=== PATIENT | male | born 1940 | race Caucasian/White ===

== ENCOUNTER 2022-02-22 12:30 | Inpatient (IN) | payer MEDICARE ==
[2022-02-22] MEDS ORDERED: Aspirin Chewable 81 MG TAB ONE (13:02)
[2022-02-22] MEDS ORDERED: Furosemide 40 MG/4 ML VIAL ONE (13:03)
[2022-02-22] MEDS ORDERED: Nitroglycerin 0.4 MG TAB 1 EACH ONE (13:03)
[2022-02-22 13:11] LABS: INR-International Normal Ratio 1.2; PTT 28.8 sec (22.0-33.0); Prothrombin Time 12.4 sec (9.5-12.1)
[2022-02-22 13:14] LABS: ALT (SGPT) 21 U/L (8-55); AST (SGOT) 36 U/L (5-34); Albumin 4.2 g/dL (3.4-4.8); Alkaline Phosphatase 79 U/L (40-110); Anion Gap 17 mmol/L (10-20); BUN (Urea Nitrogen) 16 mg/dL (8.4-25.7); Bilirubin, Total 3.2 mg/dL (0.2-1.2); Calc. Creatinine Clearance 0 mL/min (70-130); Calcium 9.7 mg/dL (7.8-10.44); Carbon Dioxide 20 mmol/L (23-31); Chloride 110 mmol/L (98-107); Estimated GFR 68; Globulin 2.9 g/dL (2.4-3.5); Glucose 116 mg/dL (83-110); Potassium 3.9 mmol/L (3.5-5.1); Protein, Total 7.1 g/dL (5.8-8.1); Sodium 143 mmol/L (136-145)
[2022-02-22 13:20] LABS: #Basophils 0.1 10x3/uL (0.0-0.2); #Eosinphils 0.1 10x3/uL (0.0-0.5); #Monocytes 1.4 10x3/uL (0.0-1.1); #Neutrophils 10.4 10x3/uL (1.5-8.4); %Basophils 0.4 % (0.0-2.0); %Eosinophils 0.6 % (0.0-6.0); %Lymphocytes 15.8 % (18.0-47.0); %Neutrophils 72.7 % (40.0-75.0); Hemoglobin 16.3 g/dL (13.5-17.5); Mean Corpuscular HGB CONC 32.9 g/dL (32.0-36.0); Mean Corpuscular Hemoglobin 30.4 pg (27.0-33.0); Mean Corpuscular Volume 92.5 fl (81.2-95.1); Mean Platelet Volume 11.5 fl (7.4-10.4); Platelet Count 241 10x3/uL (150-450); RBC Distribution Width 16.9 % (11.5-14.5); Red Blood Cell (RBC) Count 5.36 10x6/uL (4.32-5.72); White Blood Cell (WBC) Count 14.4 10x3/uL (3.5-10.5)
[2022-02-22 13:36] LABS: CKMB 4.1 ng/mL (0-6.6)
[2022-02-22] MEDS ORDERED: Nitroglycerin 2% Ointment 1 INCH/1 GM Packet ONE (13:39)
[2022-02-22] MEDS ORDERED: Enalaprilat Dihydrate 1.25 MG/ML VIAL SLOW IVP SCH (13:45)
[2022-02-22 15:38] LABS: SARS-CoV-2 NAA Rapid Test DETECTED (NotDetected)
[2022-02-22] MEDS ORDERED: Ondansetron ODT 4 MG TAB PO PRN (15:38)
[2022-02-22] MEDS ORDERED: Ondansetron PF 4 MG/2 ML Vial IVP PRN (15:38)
[2022-02-22] MEDS ORDERED: Acetaminophen 650 MG Suppository PR PRN (15:38)
[2022-02-22] MEDS ORDERED: Acetaminophen 325 MG TAB PO PRN (15:38)
[2022-02-22] MEDS ORDERED: Senokot S 8.6-50 MG TAB PO PRN (15:38)
[2022-02-22] MEDS ORDERED: hydrALAZINE 20 MG/ML VIAL SLOW IVP PRN (15:44)
[2022-02-22 16:00] LABS: Magnesium 2.2 mg/dL (1.6-2.6)
[2022-02-22] MEDS ORDERED: FLU VACC QS2022-23(65YR UP)/PF 240 MCG/0.7 ML SYRINGE IM ONE (16:45)
[2022-02-23] MEDS ORDERED: Melatonin 3 MG TAB PO SCH ×2 (01:00→23:00)
[2022-02-23] MEDS: Furosemide 40 MG/4 ML VIAL SLOW IVP SCH ×2 (05:48→17:30)
[2022-02-23 05:59] LABS: #Basophils 0.1 10x3/uL (0.0-0.2); #Eosinphils 0.2 10x3/uL (0.0-0.5); #Monocytes 1.3 10x3/uL (0.0-1.1); #Neutrophils 9.5 10x3/uL (1.5-8.4); %Basophils 0.6 % (0.0-2.0); %Eosinophils 1.4 % (0.0-6.0); %Lymphocytes 12.4 % (18.0-47.0); %Monocytes 9.9 % (0.0-10.0); %Neutrophils 75.2 % (40.0-75.0); Hemoglobin 14.3 g/dL (13.5-17.5); Mean Corpuscular HGB CONC 32.8 g/dL (32.0-36.0); Mean Corpuscular Hemoglobin 30.1 pg (27.0-33.0); Mean Corpuscular Volume 91.8 fl (81.2-95.1); Mean Platelet Volume 10.5 fl (7.4-10.4); Platelet Count 193 10x3/uL (150-450); RBC Distribution Width 16.6 % (11.5-14.5); Red Blood Cell (RBC) Count 4.75 10x6/uL (4.32-5.72); White Blood Cell (WBC) Count 12.6 10x3/uL (3.5-10.5)
[2022-02-23 06:17] LABS: Anion Gap 13 mmol/L (10-20); BUN (Urea Nitrogen) 12 mg/dL (8.4-25.7); Calc. Creatinine Clearance 84 mL/min (70-130); Calcium 8.8 mg/dL (7.8-10.44); Carbon Dioxide 25 mmol/L (23-31); Chloride 108 mmol/L (98-107); Estimated GFR 79; Glucose 89 mg/dL (83-110); Magnesium 1.9 mg/dL (1.6-2.6); Potassium 3.3 mmol/L (3.5-5.1); Sodium 143 mmol/L (136-145)
[2022-02-23 06:20] LABS: ALT (SGPT) 17 U/L (8-55); AST (SGOT) 29 U/L (5-34); Albumin 3.5 g/dL (3.4-4.8); Alkaline Phosphatase 67 U/L (40-110); Bilirubin, Direct 0.7 mg/dL (0.1-0.3); Bilirubin, Total 3.4 mg/dL (0.2-1.2); Protein, Total 6.1 g/dL (5.8-8.1)
[2022-02-23 07:15] LABS: Bilirubin Neg (Negative); Blood, Urine 150 (Negative); Clarity Clear (Clear); Glucose, Urine (Dipstick) Normal (Negative); Ketone, Urine 5 mg/dL (Negative); Leukocyte 100 (Negative); Nitrite Negative (Negative); Protein, Urine (Dipstick) 100 mg/dl (Neg-Trace); Urobilinogen Normal mg/dL (Less than 2)
[2022-02-23 07:49] LABS: Urine Culture Reflex No No
[2022-02-23 08:10] LABS: RBC/HPF 21-50 HPF (0-3)
[2022-02-23 08:11] LABS: Bacteria/HPF Rare-Few HPF (None Seen); Squamous Epithelial 0-3 HPF (0-3)
[2022-02-23] MEDS ORDERED: Lisinopril 2.5 MG TAB PO SCH (09:00)
[2022-02-23] MEDS ORDERED: Potassium Chloride 20 MEQ TAB PO SCH (09:00)
[2022-02-23] MEDS: Apixaban 5 MG TAB PO SCH ×2 (10:07→22:38)
[2022-02-23] MEDS ORDERED: Carvedilol 12.5 MG TAB PO SCH (18:00)
[2022-02-24 03:40] VITALS: BMI 31.1
[2022-02-24 04:06] LABS: Anion Gap 13 mmol/L (10-20); BUN (Urea Nitrogen) 16 mg/dL (8.4-25.7); Calc. Creatinine Clearance 81 mL/min (70-130); Calcium 9.1 mg/dL (7.8-10.44); Carbon Dioxide 26 mmol/L (23-31); Chloride 105 mmol/L (98-107); Estimated GFR 76; Glucose 101 mg/dL (83-110); Potassium 3.5 mmol/L (3.5-5.1); Sodium 140 mmol/L (136-145)
[2022-02-24] MEDS ORDERED: Furosemide 20 MG TAB PO SCH (09:00)
[2022-02-24] MEDS: Apixaban 5 MG TAB PO SCH ×2 (10:43→21:46)
[2022-02-24] MEDS: Carvedilol 12.5 MG TAB PO SCH ×2 (10:43→16:05)
[2022-02-24] MEDS: Lisinopril 5 MG TAB PO SCH (10:43)
[2022-02-24] MEDS ORDERED: Potassium Chloride 20 MEQ TAB PO SCH (12:00)
[2022-02-24] MEDS ORDERED: Senokot S 8.6-50 MG TAB PO SCH (16:00)
[2022-02-24] MEDS ORDERED: Polyethylene Glycol 3350 17 GM Packet PO SCH (16:00)
[2022-02-25] MEDS ORDERED: Furosemide 40 MG TAB PO SCH (07:30)
[2022-02-25] MEDS: Carvedilol 12.5 MG TAB PO SCH (10:32)
[2022-02-25] MEDS: Apixaban 5 MG TAB PO SCH (10:32)
[2022-02-25] MEDS: Lisinopril 5 MG TAB PO SCH (10:33)
[2022-02-25 13:20] VITALS: BP 112/75; TEMP 98
== END 2022-02-25 13:20 | disposition home or self-care (01) | DRG 291 ==
LOC: CSHERS 12:30 → CSHTELE 15:51
PROVIDERS: ADMIT Internal Medicine; ATTEND Family Medicine
PROC: 8E0ZXY6 Isolation (ICD-10-PCS; principal; 2022-02-22)
DX: I11.0 Hypertensive heart disease with heart failure (principal); I50.43 Acute on chronic combined systolic (congestive) and diastolic (congestive) heart failure; U07.1 COVID-19; I48.92 Unspecified atrial flutter; R31.9 Hematuria, unspecified; I25.10 Atherosclerotic heart disease of native coronary artery without angina pectoris; I48.0 Paroxysmal atrial fibrillation; E78.5 Hyperlipidemia, unspecified; I49.5 Sick sinus syndrome; Z95.2 Presence of prosthetic heart valve; Z95.0 Presence of cardiac pacemaker; Z79.01 Long term (current) use of anticoagulants; Z85.46 Personal history of malignant neoplasm of prostate; Z79.899 Other long term (current) drug therapy; Z88.6 Allergy status to analgesic agent; Z92.3 Personal history of irradiation; Z95.5 Presence of coronary angioplasty implant and graft; I25.2 Old myocardial infarction; Z95.1 Presence of aortocoronary bypass graft; Z91.14 Patient's other noncompliance with medication regimen
CPT/HCPCS: 36415; 71045; 80048; 80053; 80076; 81001; 82553; 83735; 83880; 84443; 84484; 85025; 85610; 85730; 87086; 93005; 93306; 94760; 96374; 97139; J1940; U0002

== ENCOUNTER 2022-03-23 06:36 | Inpatient (IN) | payer MEDICARE ==
[2022-03-23 07:14] LABS: Actual Bicarbonate (HCO3a) 23.5 mEq/L (22-28); Base Excess (BEa) 0.5 mEq/L (-2.0 to +3.0); CO2 Tension 33.2 mmHg (35.0-45.0); Carboxyhemoglobin (COHb) 0.8 gm% (0.0-3.0); Hemoglobin (Hb) 15.2 g/dL (14.0-18.0); O2 Tension (PaO2), arterial 190.2 mmHg (> 60.0); Puncture Site LRA; pH, Arterial 7.47 (7.35-7.45)
[2022-03-23] MEDS ORDERED: Apixaban 5 MG TAB PO SCH (09:00)
[2022-03-23 09:10] LABS: CKMB 1.9 ng/mL (0-6.6)
[2022-03-23] MEDS ORDERED: Apixaban 5 MG TAB ONE (09:23)
[2022-03-23] MEDS ORDERED: Acetaminophen 325 MG TAB ONE (10:54)
[2022-03-23 11:21] LABS: Troponin I 0.035 ng/mL (< 0.028)
[2022-03-23 13:47] VITALS: BMI 31.8
[2022-03-23] MEDS: cefTRIAXone\\ROCEPHIN 1 GM in Sodium Chloride 0.9% 100 ML IVPB SCH (14:02)
[2022-03-23] MEDS: Azithromycin 500 MG in Sodium Chloride 0.9% 250 ML 250 ML IVPB SCH (14:03)
[2022-03-23 14:23] LABS: Potassium 4.4 mmol/L (3.5-5.1)
[2022-03-23 14:30] LABS: Troponin I 0.025 ng/mL (< 0.028)
[2022-03-23] MEDS ORDERED: Carvedilol 12.5 MG TAB PO SCH (18:15)
[2022-03-23] MEDS: Benzonatate 100 MG CAP PO PRN (18:16)
[2022-03-23] MEDS: Acetaminophen 325 MG TAB PO PRN (18:27)
[2022-03-23] MEDS: Guaifenesin DM 100-10/5 ML UDCUP PO PRN (21:02)
[2022-03-24 05:00] LABS: #Monocytes 1.6 10x3/uL (0.0-1.1); #Neutrophils 13.7 10x3/uL (1.5-8.4); %Basophils 0.1 % (0.0-2.0); %Eosinophils 0.1 % (0.0-6.0); %Lymphocytes 6.6 % (18.0-47.0); %Monocytes 9.5 % (0.0-10.0); %Neutrophils 83.3 % (40.0-75.0); Hemoglobin 13.9 g/dL (13.5-17.5); Mean Corpuscular HGB CONC 33.3 g/dL (32.0-36.0); Mean Corpuscular Hemoglobin 30.2 pg (27.0-33.0); Mean Corpuscular Volume 90.5 fl (81.2-95.1); Mean Platelet Volume 11.8 fl (7.4-10.4); Platelet Count 130 10x3/uL (150-450); RBC Distribution Width 15.8 % (11.5-14.5); Red Blood Cell (RBC) Count 4.61 10x6/uL (4.32-5.72); White Blood Cell (WBC) Count 16.5 10x3/uL (3.5-10.5)
[2022-03-24 05:30] LABS: Anion Gap 13 mmol/L (10-20); BUN (Urea Nitrogen) 28 mg/dL (8.4-25.7); Calc. Creatinine Clearance 83 mL/min (70-130); Calcium 9.2 mg/dL (7.8-10.44); Carbon Dioxide 24 mmol/L (23-31); Chloride 106 mmol/L (98-107); Estimated GFR 76; Glucose 107 mg/dL (83-110); Potassium 4.5 mmol/L (3.5-5.1); Sodium 138 mmol/L (136-145)
[2022-03-24] MEDS: Furosemide 40 MG/4 ML VIAL SLOW IVP SCH ×2 (06:38→15:48)
[2022-03-24] MEDS ORDERED: Carvedilol 12.5 MG TAB PO SCH (08:00)
[2022-03-24] MEDS: Potassium Chloride 20 MEQ TAB PO SCH ×2 (08:57→18:52)
[2022-03-24] MEDS: Benzonatate 100 MG CAP PO PRN (08:57)
[2022-03-24] MEDS ORDERED: Polyethylene Glycol 3350 17 GM Packet PO PRN (09:07)
[2022-03-24] MEDS ORDERED: Iopamidol 370 76% 100 ML VIAL ONE (09:16)
[2022-03-24] MEDS ORDERED: Apixaban 5 MG TAB PO SCH (10:00)
[2022-03-24] MEDS ORDERED: methylPREDNISolone Sod Succ 40 MG VIAL IVP SCH (14:45)
[2022-03-24] MEDS: Azithromycin 500 MG in Sodium Chloride 0.9% 250 ML 250 ML IVPB SCH (15:48)
[2022-03-24] MEDS: cefTRIAXone\\ROCEPHIN 1 GM in Sodium Chloride 0.9% 100 ML IVPB SCH (15:48)
[2022-03-24] MEDS: Carvedilol 12.5 MG TAB PO SCH (18:52)
[2022-03-24] MEDS: Apixaban 5 MG TAB PO SCH (18:53)
[2022-03-24 19:25] LABS: Bilirubin Neg (Negative); Blood, Urine 250 (Negative); Clarity Cloudy (Clear); Glucose, Urine (Dipstick) Normal (Negative); Ketone, Urine Negative (Negative); Leukocyte 100 (Negative); Nitrite Negative (Negative); Protein, Urine (Dipstick) 30 mg/dl (Neg-Trace); Urobilinogen Normal mg/dL (Less than 2)
[2022-03-24 19:33] LABS: Bacteria/HPF 1+ HPF (None Seen); RBC/HPF Greater than 50 HPF (0-3); Squamous Epithelial 0-3 HPF (0-3)
[2022-03-24] MEDS: Guaifenesin DM 100-10/5 ML UDCUP PO PRN (20:53)
[2022-03-25] MEDS: Guaifenesin DM 100-10/5 ML UDCUP PO PRN ×2 (04:25→20:46)
[2022-03-25] MEDS: Acetaminophen 325 MG TAB PO PRN ×2 (04:25→13:58)
[2022-03-25] MEDS: Furosemide 40 MG/4 ML VIAL SLOW IVP SCH ×2 (05:30→13:45)
[2022-03-25 06:44] LABS: #Monocytes 0.6 10x3/uL (0.0-1.1); %Basophils 0.1 % (0.0-2.0); %Monocytes 6.1 % (0.0-10.0); %Neutrophils 85.3 % (40.0-75.0); Hemoglobin 14.1 g/dL (13.5-17.5); Mean Corpuscular HGB CONC 32.6 g/dL (32.0-36.0); Mean Corpuscular Hemoglobin 29.4 pg (27.0-33.0); Mean Corpuscular Volume 90.2 fl (81.2-95.1); Mean Platelet Volume 11.7 fl (7.4-10.4); Platelet Count 150 10x3/uL (150-450); RBC Distribution Width 15.5 % (11.5-14.5); White Blood Cell (WBC) Count 10.6 10x3/uL (3.5-10.5)
[2022-03-25 06:51] LABS: Anion Gap 13 mmol/L (10-20); BUN (Urea Nitrogen) 33 mg/dL (8.4-25.7); Calc. Creatinine Clearance 90 mL/min (70-130); Calcium 9.2 mg/dL (7.8-10.44); Carbon Dioxide 26 mmol/L (23-31); Chloride 105 mmol/L (98-107); Estimated GFR 84; Glucose 110 mg/dL (83-110); Potassium 4.9 mmol/L (3.5-5.1); Sodium 139 mmol/L (136-145)
[2022-03-25] MEDS ORDERED: methylPREDNISolone Sod Succ 40 MG VIAL IVP SCH (09:00)
[2022-03-25] MEDS: Polyethylene Glycol 3350 17 GM Packet PO SCH (09:27)
[2022-03-25] MEDS: Apixaban 5 MG TAB PO SCH ×2 (09:28→20:45)
[2022-03-25] MEDS: Carvedilol 12.5 MG TAB PO SCH ×2 (09:29→16:14)
[2022-03-25] MEDS: Potassium Chloride 20 MEQ TAB PO SCH ×2 (09:29→16:15)
[2022-03-25] MEDS: methylPREDNISolone Sod Succ 40 MG VIAL IVP SCH ×2 (09:30→20:44)
[2022-03-25] MEDS ORDERED: guaiFENesin ER 600 MG TAB PO SCH (10:30)
[2022-03-25] MEDS: cefTRIAXone\\ROCEPHIN 1 GM in Sodium Chloride 0.9% 100 ML IVPB SCH (13:45)
[2022-03-25] MEDS: Bisacodyl 10 MG SUPP PR PRN ×2 (16:55→20:45)
[2022-03-25] MEDS ORDERED: Azithromycin 250 MG TAB PO SCH (17:00)
[2022-03-25] MEDS: guaiFENesin ER 600 MG TAB PO SCH (20:45)
[2022-03-26 04:36] LABS: Hemoglobin 14.2 g/dL (13.5-17.5); Mean Corpuscular Hemoglobin 30.4 pg (27.0-33.0); Mean Corpuscular Volume 89.5 fl (81.2-95.1); Platelet Count 177 10x3/uL (150-450); RBC Distribution Width 15.2 % (11.5-14.5); Red Blood Cell (RBC) Count 4.67 10x6/uL (4.32-5.72); White Blood Cell (WBC) Count 13.3 10x3/uL (3.5-10.5)
[2022-03-26 05:15] LABS: Anion Gap 14 mmol/L (10-20); BUN (Urea Nitrogen) 33 mg/dL (8.4-25.7); Calc. Creatinine Clearance 98 mL/min (70-130); Calcium 9.4 mg/dL (7.8-10.44); Carbon Dioxide 24 mmol/L (23-31); Chloride 103 mmol/L (98-107); Estimated GFR 88; Glucose 130 mg/dL (83-110); Potassium 4.4 mmol/L (3.5-5.1); Sodium 137 mmol/L (136-145)
[2022-03-26 06:01] LABS: MDiff Complete? YES
[2022-03-26] MEDS: Furosemide 40 MG/4 ML VIAL SLOW IVP SCH (06:33)
[2022-03-26 06:41] LABS: Lymphocytes 2 % (21-51); Monocytes 3 % (0-10); Neutrophil 95 % (42-75)
[2022-03-26 06:42] LABS: Diff Comment (RBC Morph SCRN) NORMAL; Platelet Morphology Comment Appears Adequate
[2022-03-26] MEDS: guaiFENesin ER 600 MG TAB PO SCH (08:35)
[2022-03-26] MEDS: Carvedilol 12.5 MG TAB PO SCH (08:35)
[2022-03-26] MEDS: Potassium Chloride 20 MEQ TAB PO SCH (08:35)
[2022-03-26] MEDS: methylPREDNISolone Sod Succ 40 MG VIAL IVP SCH (08:36)
[2022-03-26] MEDS: Polyethylene Glycol 3350 17 GM Packet PO SCH (08:36)
[2022-03-26] MEDS: Apixaban 5 MG TAB PO SCH (08:36)
[2022-03-26 12:20] VITALS: BP 148/91; TEMP 98
== END 2022-03-26 13:50 | disposition home or self-care (01) | DRG 871 ==
LOC: CSHERS 06:36 → CSHTELE 13:41
PROVIDERS: ADMIT Family Medicine; ATTEND Internal Medicine
DX: A41.9 Sepsis, unspecified organism (principal); I50.43 Acute on chronic combined systolic (congestive) and diastolic (congestive) heart failure; J18.9 Pneumonia, unspecified organism; J96.01 Acute respiratory failure with hypoxia; I49.5 Sick sinus syndrome; I11.0 Hypertensive heart disease with heart failure; E78.5 Hyperlipidemia, unspecified; I48.0 Paroxysmal atrial fibrillation; I25.10 Atherosclerotic heart disease of native coronary artery without angina pectoris; I27.20 Pulmonary hypertension, unspecified; Z85.46 Personal history of malignant neoplasm of prostate; Z92.3 Personal history of irradiation; Z95.3 Presence of xenogenic heart valve; Z95.5 Presence of coronary angioplasty implant and graft; I25.2 Old myocardial infarction; Z95.0 Presence of cardiac pacemaker; Z88.6 Allergy status to analgesic agent; Z79.899 Other long term (current) drug therapy; Z90.49 Acquired absence of other specified parts of digestive tract; Z95.1 Presence of aortocoronary bypass graft
CPT/HCPCS: 36415; 36600; 71275; 80048; 81001; 82553; 82805; 83735; 83880; 85025; 87070; 87205; 93005; 94640; 94660; 94760; J0456; J0696; J1940; J2920; J3490; J7050; J7620; Q9967

== ENCOUNTER 2022-06-15 14:40 | Outpatient (CLI) | payer MEDICARE | END 2022-06-15 14:43 | disposition home or self-care (01) | LOC: CSHWCC 14:40 | PROVIDERS: ATTEND Nurse Practitioner Family | DX: N30.41 Irradiation cystitis with hematuria (principal) | CPT/HCPCS: 97139; G0463; 99203 ==

== ENCOUNTER 2022-07-20 13:05 | Outpatient (CLI) | payer MEDICARE | END 2022-07-20 13:06 | disposition home or self-care (01) | LOC: CSHWCC 13:05 | PROVIDERS: ATTEND Nurse Practitioner Family | DX: N30.41 Irradiation cystitis with hematuria (principal) | CPT/HCPCS: 97139; G0277 ==

== ENCOUNTER 2022-07-21 13:06 | Outpatient (CLI) | payer MEDICARE | END 2022-07-21 13:07 | disposition home or self-care (01) | LOC: CSHWCC 13:06 | PROVIDERS: ATTEND Nurse Practitioner Family | DX: N30.41 Irradiation cystitis with hematuria (principal) | CPT/HCPCS: 97139; G0277 ==

== ENCOUNTER 2022-07-22 13:01 | Outpatient (CLI) | payer MEDICARE | END 2022-07-22 13:02 | disposition home or self-care (01) | LOC: CSHWCC 13:01 | PROVIDERS: ATTEND Nurse Practitioner Family | DX: N30.41 Irradiation cystitis with hematuria (principal) ==

== ENCOUNTER 2022-07-23 10:02 | Inpatient (IN) | payer MEDICARE ==
[2022-07-23] MEDS ORDERED: Furosemide 100 MG/10 ML VIAL ONE (10:49)
[2022-07-23 11:11] LABS: #Basophils 0.1 10x3/uL (0.0-0.2); #Eosinphils 0.5 10x3/uL (0.0-0.5); #Monocytes 1.1 10x3/uL (0.0-1.1); #Neutrophils 9.8 10x3/uL (1.5-8.4); %Basophils 0.5 % (0.0-2.0); %Eosinophils 3.8 % (0.0-6.0); %Lymphocytes 8.1 % (18.0-47.0); %Monocytes 9.1 % (0.0-10.0); %Neutrophils 77.9 % (40.0-75.0); Hemoglobin 14.5 g/dL (13.5-17.5); Mean Corpuscular HGB CONC 32.7 g/dL (32.0-36.0); Mean Corpuscular Hemoglobin 30.5 pg (27.0-33.0); Mean Corpuscular Volume 93.5 fl (81.2-95.1); Mean Platelet Volume 11.1 fl (7.4-10.4); Platelet Count 227 10x3/uL (150-450); RBC Distribution Width 15.3 % (11.5-14.5); Red Blood Cell (RBC) Count 4.75 10x6/uL (4.32-5.72); White Blood Cell (WBC) Count 12.5 10x3/uL (3.5-10.5)
[2022-07-23 11:24] LABS: INR-International Normal Ratio 1.3; PTT 31.6 sec (22.0-33.0); Prothrombin Time 13.5 sec (9.5-12.1)
[2022-07-23 11:40] LABS: ALT (SGPT) 32 U/L (8-55); AST (SGOT) 37 U/L (5-34); Albumin 3.5 g/dL (3.4-4.8); Alkaline Phosphatase 87 U/L (40-110); Anion Gap 17 mmol/L (10-20); BUN (Urea Nitrogen) 43 mg/dL (8.4-25.7); Bilirubin, Total 2.4 mg/dL (0.2-1.2); Calc. Creatinine Clearance 0 mL/min (70-130); Calcium 8.7 mg/dL (7.8-10.44); Carbon Dioxide 21 mmol/L (23-31); Chloride 99 mmol/L (98-107); Estimated GFR 33; Globulin 2.5 g/dL (2.4-3.5); Glucose 121 mg/dL (83-110); Lipase 53 U/L (8-78); Magnesium 2.3 mg/dL (1.6-2.6); Potassium 4.9 mmol/L (3.5-5.1); Sodium 132 mmol/L (136-145)
[2022-07-23] MEDS ORDERED: Acetaminophen 325 MG TAB ONE (13:23)
[2022-07-23] MEDS ORDERED: Ondansetron ODT 4 MG TAB PO PRN (13:56)
[2022-07-23] MEDS: Furosemide 40 MG/4 ML VIAL SLOW IVP SCH (16:06)
[2022-07-23] MEDS ORDERED: Iopamidol 300 61% 100 ML VIAL FS ONE (18:24)
[2022-07-23 19:30] LABS: SARS-CoV-2 NAA Rapid Test DETECTED (NotDetected)
[2022-07-24] MEDS: Acetaminophen 325 MG TAB PO PRN ×3 (00:51→17:43)
[2022-07-24] MEDS: Apixaban 5 MG TAB PO SCH ×2 (01:18→13:00)
[2022-07-24 05:50] LABS: #Basophils 0.1 10x3/uL (0.0-0.2); #Eosinphils 0.6 10x3/uL (0.0-0.5); #Monocytes 1.6 10x3/uL (0.0-1.1); %Basophils 0.4 % (0.0-2.0); %Eosinophils 4.8 % (0.0-6.0); %Lymphocytes 9.7 % (18.0-47.0); %Monocytes 12.6 % (0.0-10.0); %Neutrophils 72.1 % (40.0-75.0); Hemoglobin 13.8 g/dL (13.5-17.5); Mean Corpuscular HGB CONC 32.9 g/dL (32.0-36.0); Mean Corpuscular Hemoglobin 29.9 pg (27.0-33.0); Mean Corpuscular Volume 90.9 fl (81.2-95.1); Mean Platelet Volume 10.8 fl (7.4-10.4); Platelet Count 215 10x3/uL (150-450); RBC Distribution Width 15.4 % (11.5-14.5); Red Blood Cell (RBC) Count 4.62 10x6/uL (4.32-5.72); White Blood Cell (WBC) Count 12.4 10x3/uL (3.5-10.5)
[2022-07-24 06:03] LABS: Anion Gap 15 mmol/L (10-20); BUN (Urea Nitrogen) 41 mg/dL (8.4-25.7); Calc. Creatinine Clearance 47 mL/min (70-130); Calcium 8.9 mg/dL (7.8-10.44); Carbon Dioxide 22 mmol/L (23-31); Chloride 103 mmol/L (98-107); Estimated GFR 38; Glucose 116 mg/dL (83-110); Potassium 4.2 mmol/L (3.5-5.1); Sodium 136 mmol/L (136-145)
[2022-07-24] MEDS: Furosemide 40 MG/4 ML VIAL SLOW IVP SCH ×2 (06:07→13:05)
[2022-07-24] MEDS: Polyethylene Glycol 3350 17 GM Packet PO SCH (09:20)
[2022-07-24] MEDS ORDERED: Metolazone 2.5 MG TAB PO SCH (11:30)
[2022-07-24 15:04] LABS: Bilirubin Neg (Negative); Blood, Urine 250 (Negative); Clarity Cloudy (Clear); Glucose, Urine (Dipstick) Normal (Negative); Ketone, Urine Negative (Negative); Leukocyte 500 (Negative); Nitrite Negative (Negative); Protein, Urine (Dipstick) 30 mg/dl (Neg-Trace); Specific Gravity, Urine 1.015 (1.005-1.030); Urobilinogen Normal mg/dL (Less than 2)
[2022-07-24 15:23] LABS: Creatinine, Urine 76.82 mg/dL (63-166); Protein, Urine Random Quant 44 mg/dL (1-14)
[2022-07-24 15:37] LABS: Bacteria/HPF 1+ HPF (None Seen); RBC/HPF Greater than 50 HPF (0-3); Squamous Epithelial 0-3 HPF (0-3)
[2022-07-24] MEDS: Carvedilol 6.25 MG TAB PO SCH (17:42)
[2022-07-24 20:28] LABS: Sodium, Urine Less than 20 mmol/L (Not Available); Urea Nitrogen, Random Urine 593 mg/dl
[2022-07-24] MEDS: Sacubitril 24MG/Valsartan 26 MG TAB PO SCH (21:08)
[2022-07-25] MEDS: Acetaminophen 325 MG TAB PO PRN ×3 (01:08→18:07)
[2022-07-25] MEDS: Apixaban 5 MG TAB PO SCH ×2 (01:08→10:55)
[2022-07-25 04:40] LABS: #Basophils 0.1 10x3/uL (0.0-0.2); #Eosinphils 0.6 10x3/uL (0.0-0.5); #Monocytes 1.5 10x3/uL (0.0-1.1); %Basophils 0.4 % (0.0-2.0); %Eosinophils 4.8 % (0.0-6.0); %Lymphocytes 8.1 % (18.0-47.0); %Monocytes 12.2 % (0.0-10.0); %Neutrophils 74.2 % (40.0-75.0); Hemoglobin 13.3 g/dL (13.5-17.5); Mean Corpuscular HGB CONC 32.8 g/dL (32.0-36.0); Mean Corpuscular Volume 91.4 fl (81.2-95.1); Platelet Count 207 10x3/uL (150-450); RBC Distribution Width 15.4 % (11.5-14.5); Red Blood Cell (RBC) Count 4.44 10x6/uL (4.32-5.72); White Blood Cell (WBC) Count 12.2 10x3/uL (3.5-10.5)
[2022-07-25 04:46] LABS: Anion Gap 13 mmol/L (10-20); BUN (Urea Nitrogen) 39 mg/dL (8.4-25.7); Calc. Creatinine Clearance 54 mL/min (70-130); Calcium 8.7 mg/dL (7.8-10.44); Carbon Dioxide 24 mmol/L (23-31); Chloride 103 mmol/L (98-107); Estimated GFR 44; Glucose 122 mg/dL (83-110); Potassium 3.8 mmol/L (3.5-5.1); Sodium 136 mmol/L (136-145)
[2022-07-25 07:02] LABS: Iron 49 ug/dL (65-175); Iron Binding Capacity, Total 299 mcg/dL (261-462)
[2022-07-25] MEDS: Furosemide 40 MG/4 ML VIAL SLOW IVP SCH ×2 (07:49→14:57)
[2022-07-25] MEDS: Metolazone 2.5 MG TAB PO SCH (10:25)
[2022-07-25] MEDS: Polyethylene Glycol 3350 17 GM Packet PO SCH (10:25)
[2022-07-25] MEDS: Sacubitril 24MG/Valsartan 26 MG TAB PO SCH ×2 (10:25→20:06)
[2022-07-25] MEDS: Spironolactone 25 MG TAB PO SCH (10:26)
[2022-07-25] MEDS ORDERED: Iron, Sodium Ferric Gluconate 250 MG in Sodium Chloride 0.9% 250 ML 250 ML IVPB SCH (10:45)
[2022-07-25] MEDS: Bisacodyl 5 MG TAB PO PRN (10:55)
[2022-07-25] MEDS: Carvedilol 6.25 MG TAB PO SCH ×2 (10:55→18:08)
[2022-07-25] MEDS ORDERED: Fluticasone Propionate Nasal Spray 16 gm Bottle NASAL SCH (11:00)
[2022-07-25] MEDS ORDERED: Magnesium Oxide 400 MG TAB PO SCH (22:30)
[2022-07-25] MEDS: Melatonin 3 MG TAB PO PRN (22:50)
[2022-07-26] MEDS: Acetaminophen 325 MG TAB PO PRN ×3 (00:37→21:39)
[2022-07-26] MEDS: Apixaban 5 MG TAB PO SCH (01:23)
[2022-07-26 06:05] LABS: #Basophils 0.1 10x3/uL (0.0-0.2); #Eosinphils 0.7 10x3/uL (0.0-0.5); #Monocytes 1.7 10x3/uL (0.0-1.1); #Neutrophils 8.6 10x3/uL (1.5-8.4); %Basophils 0.7 % (0.0-2.0); %Eosinophils 5.5 % (0.0-6.0); %Lymphocytes 8.3 % (18.0-47.0); %Monocytes 14.1 % (0.0-10.0); %Neutrophils 70.8 % (40.0-75.0); Hemoglobin 12.7 g/dL (13.5-17.5); Mean Corpuscular HGB CONC 33.1 g/dL (32.0-36.0); Mean Corpuscular Hemoglobin 30.2 pg (27.0-33.0); Mean Corpuscular Volume 91.2 fl (81.2-95.1); Platelet Count 192 10x3/uL (150-450); RBC Distribution Width 15.1 % (11.5-14.5); Red Blood Cell (RBC) Count 4.21 10x6/uL (4.32-5.72); White Blood Cell (WBC) Count 12.1 10x3/uL (3.5-10.5)
[2022-07-26] MEDS: Furosemide 40 MG/4 ML VIAL SLOW IVP SCH ×2 (07:15→15:15)
[2022-07-26 07:58] LABS: Anion Gap 16 mmol/L (10-20); BUN (Urea Nitrogen) 54 mg/dL (8.4-25.7); Calc. Creatinine Clearance 68 mL/min (70-130); Calcium 8.7 mg/dL (7.8-10.44); Carbon Dioxide 24 mmol/L (23-31); Chloride 102 mmol/L (98-107); Estimated GFR 60; Glucose 108 mg/dL (83-110); Magnesium 2.3 mg/dL (1.6-2.6); Potassium 3.7 mmol/L (3.5-5.1); Sodium 138 mmol/L (136-145)
[2022-07-26] MEDS: Sacubitril 24MG/Valsartan 26 MG TAB PO SCH ×2 (08:41→21:40)
[2022-07-26] MEDS: Spironolactone 25 MG TAB PO SCH (08:41)
[2022-07-26] MEDS: Polyethylene Glycol 3350 17 GM Packet PO SCH (08:41)
[2022-07-26] MEDS: Metolazone 2.5 MG TAB PO SCH (08:41)
[2022-07-26] MEDS: Bisacodyl 5 MG TAB PO PRN (08:41)
[2022-07-26] MEDS: Fluticasone Propionate Nasal Spray 16 gm Bottle NASAL SCH (08:42)
[2022-07-26] MEDS: Carvedilol 6.25 MG TAB PO SCH ×2 (08:42→15:15)
[2022-07-26] MEDS ORDERED: GoLYTELY 4,000 ml Bottle PO SCH (09:30)
[2022-07-26] MEDS ORDERED: Apixaban 5 MG TAB PO SCH ×2 (11:00→21:00)
[2022-07-26] MEDS ORDERED: Spironolactone 25 MG TAB PO SCH (14:00)
[2022-07-26] MEDS: Albumin 25% 25 GM/100 ML BOT IVPB SCH ×2 (15:14→21:41)
[2022-07-26] MEDS: Senokot S 8.6-50 MG TAB PO SCH (21:40)
[2022-07-26] MEDS: Melatonin 3 MG TAB PO PRN (21:40)
[2022-07-26] MEDS: rOPINIRole HCl 0.25 MG TAB PO SCH (21:40)
[2022-07-26] MEDS ORDERED: Furosemide 40 MG/4 ML VIAL SLOW IVP SCH (22:00)
[2022-07-27] MEDS: Acetaminophen 325 MG TAB PO PRN ×2 (01:40→18:35)
[2022-07-27 05:23] LABS: #Basophils 0.1 10x3/uL (0.0-0.2); #Eosinphils 0.8 10x3/uL (0.0-0.5); #Monocytes 1.5 10x3/uL (0.0-1.1); #Neutrophils 9.9 10x3/uL (1.5-8.4); %Basophils 0.4 % (0.0-2.0); %Eosinophils 5.9 % (0.0-6.0); %Lymphocytes 9.6 % (18.0-47.0); %Monocytes 11.2 % (0.0-10.0); %Neutrophils 72.3 % (40.0-75.0); Hemoglobin 10.5 g/dL (13.5-17.5); Mean Corpuscular HGB CONC 32.9 g/dL (32.0-36.0); Mean Corpuscular Hemoglobin 29.9 pg (27.0-33.0); Mean Corpuscular Volume 90.9 fl (81.2-95.1); Mean Platelet Volume 10.9 fl (7.4-10.4); Platelet Count 197 10x3/uL (150-450); RBC Distribution Width 15.1 % (11.5-14.5); Red Blood Cell (RBC) Count 3.51 10x6/uL (4.32-5.72); White Blood Cell (WBC) Count 13.7 10x3/uL (3.5-10.5)
[2022-07-27 05:28] LABS: ALT (SGPT) 19 U/L (8-55); AST (SGOT) 21 U/L (5-34); Albumin 2.9 g/dL (3.4-4.8); Alkaline Phosphatase 61 U/L (40-110); Anion Gap 11 mmol/L (10-20); BUN (Urea Nitrogen) 62 mg/dL (8.4-25.7); Bilirubin, Total 1.5 mg/dL (0.2-1.2); Calc. Creatinine Clearance 69 mL/min (70-130); Calcium 9.2 mg/dL (7.8-10.44); Carbon Dioxide 31 mmol/L (23-31); Chloride 102 mmol/L (98-107); Estimated GFR 61; Glucose 116 mg/dL (83-110); Protein, Total 4.9 g/dL (5.8-8.1); Sodium 140 mmol/L (136-145)
[2022-07-27] MEDS: Furosemide 40 MG/4 ML VIAL SLOW IVP SCH ×4 (06:24→21:14)
[2022-07-27] MEDS: Sacubitril 24MG/Valsartan 26 MG TAB PO SCH ×2 (08:28→21:13)
[2022-07-27] MEDS: Senokot S 8.6-50 MG TAB PO SCH ×2 (08:28→20:43)
[2022-07-27] MEDS: Spironolactone 25 MG TAB PO SCH (08:28)
[2022-07-27] MEDS: Metolazone 2.5 MG TAB PO SCH (08:30)
[2022-07-27] MEDS: Carvedilol 6.25 MG TAB PO SCH ×2 (08:30→18:35)
[2022-07-27] MEDS: Fluticasone Propionate Nasal Spray 16 gm Bottle NASAL SCH (08:31)
[2022-07-27] MEDS: Polyethylene Glycol 3350 17 GM Packet PO SCH (08:31)
[2022-07-27] MEDS: Albumin 25% 25 GM/100 ML BOT IVPB SCH ×2 (12:50→20:37)
[2022-07-27 13:36] LABS: Hemoglobin 10.6 g/dL (13.5-17.5); Platelet Count 206 10x3/uL (150-450)
[2022-07-27] MEDS: Melatonin 3 MG TAB PO PRN (18:26)
[2022-07-27] MEDS: rOPINIRole HCl 0.25 MG TAB PO SCH (20:42)
[2022-07-27] MEDS ORDERED: Apixaban 5 MG TAB PO SCH (21:00)
[2022-07-28] MEDS: Acetaminophen 325 MG TAB PO PRN ×5 (00:24→21:41)
[2022-07-28] MEDS: Albumin 25% 25 GM/100 ML BOT IVPB SCH ×4 (04:48→21:42)
[2022-07-28] MEDS: Furosemide 40 MG/4 ML VIAL SLOW IVP SCH ×3 (05:41→21:42)
[2022-07-28 07:16] LABS: Albumin 3.4 g/dL (3.4-4.8); Anion Gap 15 mmol/L (10-20); BUN (Urea Nitrogen) 56 mg/dL (8.4-25.7); BUN/Creatinine Ratio 47.06; Calc. Creatinine Clearance 69 mL/min (70-130); Calcium 9.4 mg/dL (7.8-10.44); Carbon Dioxide 28 mmol/L (23-31); Chloride 101 mmol/L (98-107); Estimated GFR 61; Glucose 111 mg/dL (83-110); Phosphorus 3.6 mg/dL (2.3-4.7); Potassium 3.7 mmol/L (3.5-5.1); Sodium 140 mmol/L (136-145)
[2022-07-28 07:42] LABS: #Basophils 0.1 10x3/uL (0.0-0.2); #Eosinphils 0.8 10x3/uL (0.0-0.5); #Monocytes 1.3 10x3/uL (0.0-1.1); #Neutrophils 7.5 10x3/uL (1.5-8.4); %Basophils 0.6 % (0.0-2.0); %Eosinophils 7.2 % (0.0-6.0); %Lymphocytes 9.4 % (18.0-47.0); %Monocytes 12.4 % (0.0-10.0); %Neutrophils 69.8 % (40.0-75.0); Hemoglobin 8.4 g/dL (13.5-17.5); Mean Corpuscular HGB CONC 32.6 g/dL (32.0-36.0); Mean Corpuscular Hemoglobin 30.1 pg (27.0-33.0); Mean Corpuscular Volume 92.5 fl (81.2-95.1); Mean Platelet Volume 11.5 fl (7.4-10.4); Platelet Count 164 10x3/uL (150-450); RBC Distribution Width 15.2 % (11.5-14.5); Red Blood Cell (RBC) Count 2.79 10x6/uL (4.32-5.72); White Blood Cell (WBC) Count 10.8 10x3/uL (3.5-10.5)
[2022-07-28] MEDS: Carvedilol 6.25 MG TAB PO SCH ×2 (10:26→16:03)
[2022-07-28] MEDS: Sacubitril 24MG/Valsartan 26 MG TAB PO SCH ×3 (10:26→21:42)
[2022-07-28] MEDS: Fluticasone Propionate Nasal Spray 16 gm Bottle NASAL SCH (10:30)
[2022-07-28] MEDS: Metolazone 2.5 MG TAB PO SCH (10:30)
[2022-07-28] MEDS: Senokot S 8.6-50 MG TAB PO SCH ×3 (10:30→21:42)
[2022-07-28] MEDS: Spironolactone 25 MG TAB PO SCH (10:30)
[2022-07-28] MEDS: Midodrine HCl 2.5 MG TAB PO SCH ×3 (10:34→21:42)
[2022-07-28] MEDS: Polyethylene Glycol 3350 17 GM Packet PO SCH (10:35)
[2022-07-28] MEDS ORDERED: Pantoprazole 40 MG VIAL IVP SCH (17:00)
[2022-07-28] MEDS: rOPINIRole HCl 0.25 MG TAB PO SCH (21:42)
[2022-07-28] MEDS: Melatonin 3 MG TAB PO PRN (21:42)
[2022-07-29] MEDS: Albumin 25% 25 GM/100 ML BOT IVPB SCH (04:39)
[2022-07-29] MEDS: Furosemide 40 MG/4 ML VIAL SLOW IVP SCH ×2 (06:53→15:10)
[2022-07-29 09:07] LABS: #Basophils 0.1 10x3/uL (0.0-0.2); #Eosinphils 0.4 10x3/uL (0.0-0.5); #Monocytes 1.4 10x3/uL (0.0-1.1); #Neutrophils 8.3 10x3/uL (1.5-8.4); %Basophils 0.4 % (0.0-2.0); %Eosinophils 3.6 % (0.0-6.0); %Lymphocytes 9.8 % (18.0-47.0); %Monocytes 12.1 % (0.0-10.0); %Neutrophils 73.3 % (40.0-75.0); Hemoglobin 7.3 g/dL (13.5-17.5); Mean Corpuscular HGB CONC 31.9 g/dL (32.0-36.0); Mean Corpuscular Hemoglobin 30.2 pg (27.0-33.0); Mean Corpuscular Volume 94.6 fl (81.2-95.1); Mean Platelet Volume 11.4 fl (7.4-10.4); Platelet Count 179 10x3/uL (150-450); RBC Distribution Width 16.1 % (11.5-14.5); Red Blood Cell (RBC) Count 2.42 10x6/uL (4.32-5.72); White Blood Cell (WBC) Count 11.3 10x3/uL (3.5-10.5)
[2022-07-29 09:18] LABS: Phosphorus 3.9 mg/dL (2.3-4.7)
[2022-07-29 09:19] LABS: Anion Gap 16 mmol/L (10-20); BUN (Urea Nitrogen) 75 mg/dL (8.4-25.7); Calc. Creatinine Clearance 49 mL/min (70-130); Calcium 9.9 mg/dL (7.8-10.44); Carbon Dioxide 30 mmol/L (23-31); Chloride 99 mmol/L (98-107); Estimated GFR 43; Glucose 103 mg/dL (83-110); Magnesium 2.4 mg/dL (1.6-2.6); Potassium 4.1 mmol/L (3.5-5.1); Sodium 141 mmol/L (136-145)
[2022-07-29] MEDS ORDERED: Iopamidol 300 61% 100 ML VIAL FS ONE (09:46)
[2022-07-29] MEDS: Midodrine HCl 2.5 MG TAB PO SCH ×2 (10:32→16:40)
[2022-07-29] MEDS ORDERED: Fentanyl 100 MCG/2 ML VIAL ONE (10:35)
[2022-07-29] MEDS ORDERED: Lidocaine 1% PF 5 ML VIAL ONE (10:35)
[2022-07-29] MEDS ORDERED: PROPOFOL 20 ML ONE ×2 (10:35→12:15)
[2022-07-29] MEDS ORDERED: Ipratropium Bromide 2.5 ml Neb ONE (11:51)
[2022-07-29] MEDS ORDERED: Ipratropium/Albuterol 3 ML NEB NEB SCH ×2 (12:00→14:30)
[2022-07-29] MEDS ORDERED: Ketamine 50 MG/ML (10ML VIAL) ONE (12:15)
[2022-07-29] MEDS ORDERED: ePHEDrine Sulfate 50 MG/10 ML VIAL ONE (12:36)
[2022-07-29 14:39] LABS: Hemoglobin 7.7 g/dL (13.5-17.5); Platelet Count 198 10x3/uL (150-450)
[2022-07-29] MEDS: Spironolactone 25 MG TAB PO SCH (15:09)
[2022-07-29] MEDS: Fluticasone Propionate Nasal Spray 16 gm Bottle NASAL SCH (15:09)
[2022-07-29] MEDS: Metolazone 2.5 MG TAB PO SCH (15:09)
[2022-07-29] MEDS: Polyethylene Glycol 3350 17 GM Packet PO SCH (15:10)
[2022-07-29] MEDS: Senokot S 8.6-50 MG TAB PO SCH ×2 (15:10→22:19)
[2022-07-29] MEDS: Pantoprazole 40 MG VIAL IVP SCH ×2 (15:10→22:20)
[2022-07-29] MEDS: Carvedilol 3.125 MG TAB PO SCH (16:41)
[2022-07-29] MEDS: Carvedilol 6.25 MG TAB PO SCH (17:27)
[2022-07-29] MEDS: Sacubitril 24MG/Valsartan 26 MG TAB PO SCH (17:28)
[2022-07-29 19:09] LABS: Hemoglobin 7.2 g/dL (13.5-17.5); Platelet Count 186 10x3/uL (150-450)
[2022-07-29] MEDS ORDERED: Lidocaine 2% 6 ML SYR FS SCH (19:30)
[2022-07-29] MEDS: Acetaminophen 325 MG TAB PO PRN (22:18)
[2022-07-29] MEDS: Melatonin 3 MG TAB PO PRN (22:19)
[2022-07-29] MEDS: rOPINIRole HCl 0.25 MG TAB PO SCH (22:19)
[2022-07-29 23:40] LABS: Creatinine, Urine 70.97 mg/dL (63-166)
[2022-07-30 04:09] LABS: Hemoglobin 7.7 g/dL (13.5-17.5); Platelet Count 203 10x3/uL (150-450)
[2022-07-30 04:11] LABS: Anion Gap 17 mmol/L (10-20); BUN (Urea Nitrogen) 89 mg/dL (8.4-25.7); Calc. Creatinine Clearance 42 mL/min (70-130); Calcium 9.5 mg/dL (7.8-10.44); Carbon Dioxide 26 mmol/L (23-31); Chloride 100 mmol/L (98-107); Estimated GFR 36; Glucose 116 mg/dL (83-110); Sodium 139 mmol/L (136-145)
[2022-07-30 04:14] LABS: #Eosinphils 0.1 10x3/uL (0.0-0.5); #Monocytes 1.8 10x3/uL (0.0-1.1); #Neutrophils 13.4 10x3/uL (1.5-8.4); %Basophils 0.2 % (0.0-2.0); %Eosinophils 0.3 % (0.0-6.0); %Lymphocytes 10.1 % (18.0-47.0); %Monocytes 10.5 % (0.0-10.0); Hemoglobin 7.7 g/dL (13.5-17.5); Mean Corpuscular HGB CONC 33.3 g/dL (32.0-36.0); Mean Corpuscular Volume 89.9 fl (81.2-95.1); Mean Platelet Volume 11.5 fl (7.4-10.4); Platelet Count 205 10x3/uL (150-450); RBC Distribution Width 17.6 % (11.5-14.5); Red Blood Cell (RBC) Count 2.57 10x6/uL (4.32-5.72); White Blood Cell (WBC) Count 17.2 10x3/uL (3.5-10.5)
[2022-07-30 07:22] LABS: Hemoglobin 7.8 g/dL (13.5-17.5); Platelet Count 192 10x3/uL (150-450)
[2022-07-30] MEDS: Polyethylene Glycol 3350 17 GM Packet PO SCH (08:46)
[2022-07-30] MEDS: Senokot S 8.6-50 MG TAB PO SCH ×2 (08:46→20:17)
[2022-07-30] MEDS: Carvedilol 3.125 MG TAB PO SCH ×2 (08:46→19:07)
[2022-07-30] MEDS: Pantoprazole 40 MG VIAL IVP SCH ×2 (08:46→20:17)
[2022-07-30] MEDS: Acetaminophen 325 MG TAB PO PRN ×2 (09:38→20:17)
[2022-07-30] MEDS: Fluticasone Propionate Nasal Spray 16 gm Bottle NASAL SCH (10:19)
[2022-07-30 12:29] LABS: Sodium, Urine Less than 20 mmol/L (Not Available); Urea Nitrogen, Random Urine 711 mg/dl
[2022-07-30] MEDS ORDERED: Albumin 25% 25 GM/100 ML BOT IVPB SCH (14:30)
[2022-07-30] MEDS: Albumin 25% 25 GM/100 ML BOT IVPB SCH (19:07)
[2022-07-30] MEDS: Melatonin 3 MG TAB PO PRN (20:17)
[2022-07-30] MEDS: rOPINIRole HCl 0.25 MG TAB PO SCH (20:17)
[2022-07-31] MEDS: Albumin 25% 25 GM/100 ML BOT IVPB SCH (01:40)
[2022-07-31] MEDS: Acetaminophen 325 MG TAB PO PRN (01:40)
[2022-07-31 04:31] LABS: #Basophils 0.1 10x3/uL (0.0-0.2); #Monocytes 1.8 10x3/uL (0.0-1.1); #Neutrophils 12.2 10x3/uL (1.5-8.4); %Basophils 0.4 % (0.0-2.0); %Eosinophils 5.6 % (0.0-6.0); %Lymphocytes 9.7 % (18.0-47.0); %Monocytes 10.7 % (0.0-10.0); %Neutrophils 71.9 % (40.0-75.0); Hemoglobin 7.3 g/dL (13.5-17.5); Mean Corpuscular HGB CONC 32.2 g/dL (32.0-36.0); Mean Corpuscular Hemoglobin 29.8 pg (27.0-33.0); Mean Corpuscular Volume 92.7 fl (81.2-95.1); Mean Platelet Volume 11.4 fl (7.4-10.4); Platelet Count 241 10x3/uL (150-450); RBC Distribution Width 18.3 % (11.5-14.5); Red Blood Cell (RBC) Count 2.45 10x6/uL (4.32-5.72); White Blood Cell (WBC) Count 17.1 10x3/uL (3.5-10.5)
[2022-07-31 04:41] LABS: Anion Gap 21 mmol/L (10-20); BUN (Urea Nitrogen) 99 mg/dL (8.4-25.7); Calc. Creatinine Clearance 48 mL/min (70-130); Carbon Dioxide 25 mmol/L (23-31); Chloride 99 mmol/L (98-107); Estimated GFR 42; Glucose 108 mg/dL (83-110); Potassium 3.9 mmol/L (3.5-5.1); Sodium 141 mmol/L (136-145)
[2022-07-31 06:47] LABS: Magnesium 2.4 mg/dL (1.6-2.6); Phosphorus 4.4 mg/dL (2.3-4.7)
[2022-07-31] MEDS: Ondansetron PF 4 MG/2 ML Vial IVP PRN (08:50)
[2022-07-31] MEDS: Scopolamine 1.5 mg/72 hour Patch TD SCH (10:56)
[2022-07-31] MEDS ORDERED: Furosemide 40 MG/4 ML VIAL IVP SCH (11:00)
[2022-07-31] MEDS ORDERED: Iron, Sodium Ferric Gluconate 250 MG in Sodium Chloride 0.9% 250 ML 250 ML IVPB SCH (11:00)
[2022-07-31] MEDS: EPOETIN ALFA-EPBX (ESRD) 10,000 UNIT/ML VIAL SC SCH (11:00)
[2022-07-31] MEDS: Carvedilol 3.125 MG TAB PO SCH ×2 (11:24→19:31)
[2022-07-31] MEDS: Pantoprazole 40 MG VIAL IVP SCH ×2 (16:26→20:49)
[2022-07-31] MEDS: Fluticasone Propionate Nasal Spray 16 gm Bottle NASAL SCH (17:43)
[2022-07-31] MEDS: Senokot S 8.6-50 MG TAB PO SCH ×2 (17:44→20:49)
[2022-07-31] MEDS: Polyethylene Glycol 3350 17 GM Packet PO SCH (17:44)
[2022-07-31] MEDS: Melatonin 3 MG TAB PO PRN (20:50)
[2022-07-31] MEDS: rOPINIRole HCl 0.25 MG TAB PO SCH (20:50)
[2022-08-01 04:08] LABS: #Basophils 0.1 10x3/uL (0.0-0.2); #Eosinphils 0.2 10x3/uL (0.0-0.5); #Monocytes 1.8 10x3/uL (0.0-1.1); #Neutrophils 15.1 10x3/uL (1.5-8.4); %Basophils 0.5 % (0.0-2.0); %Eosinophils 0.9 % (0.0-6.0); %Lymphocytes 6.8 % (18.0-47.0); %Monocytes 9.4 % (0.0-10.0); %Neutrophils 79.5 % (40.0-75.0); Hemoglobin 8.9 g/dL (13.5-17.5); Mean Corpuscular HGB CONC 32.1 g/dL (32.0-36.0); Mean Corpuscular Hemoglobin 30.1 pg (27.0-33.0); Mean Corpuscular Volume 93.6 fl (81.2-95.1); Mean Platelet Volume 11.6 fl (7.4-10.4); Platelet Count 303 10x3/uL (150-450); RBC Distribution Width 18.6 % (11.5-14.5); Red Blood Cell (RBC) Count 2.96 10x6/uL (4.32-5.72)
[2022-08-01 04:20] LABS: Anion Gap 20 mmol/L (10-20); BUN (Urea Nitrogen) 95 mg/dL (8.4-25.7); Calc. Creatinine Clearance 0 mL/min (70-130); Calcium 9.9 mg/dL (7.8-10.44); Carbon Dioxide 24 mmol/L (23-31); Chloride 101 mmol/L (98-107); Estimated GFR 35; Glucose 129 mg/dL (83-110); Magnesium 2.7 mg/dL (1.6-2.6); Potassium 4.2 mmol/L (3.5-5.1); Sodium 141 mmol/L (136-145)
[2022-08-01] MEDS: Fluticasone Propionate Nasal Spray 16 gm Bottle NASAL SCH (11:04)
[2022-08-01] MEDS: Polyethylene Glycol 3350 17 GM Packet PO SCH (11:06)
[2022-08-01] MEDS: Senokot S 8.6-50 MG TAB PO SCH ×2 (11:06→21:41)
[2022-08-01] MEDS: Pantoprazole 40 MG VIAL IVP SCH ×2 (11:06→21:41)
[2022-08-01] MEDS: Carvedilol 3.125 MG TAB PO SCH ×2 (11:35→16:32)
[2022-08-01] MEDS: Albumin 25% 25 GM/100 ML BOT IVPB SCH ×2 (12:52→18:05)
[2022-08-01] MEDS: Acetaminophen 325 MG TAB PO PRN (21:41)
[2022-08-01] MEDS: rOPINIRole HCl 0.25 MG TAB PO SCH (21:41)
[2022-08-01] MEDS: Melatonin 3 MG TAB PO PRN (21:42)
[2022-08-02 04:05] LABS: #Basophils 0.1 10x3/uL (0.0-0.2); #Eosinphils 0.1 10x3/uL (0.0-0.5); #Neutrophils 13.7 10x3/uL (1.5-8.4); %Basophils 0.3 % (0.0-2.0); %Eosinophils 0.5 % (0.0-6.0); %Lymphocytes 6.3 % (18.0-47.0); %Monocytes 5.9 % (0.0-10.0); Hemoglobin 7.8 g/dL (13.5-17.5); Mean Corpuscular HGB CONC 32.8 g/dL (32.0-36.0); Mean Corpuscular Hemoglobin 31.2 pg (27.0-33.0); Mean Corpuscular Volume 95.2 fl (81.2-95.1); Mean Platelet Volume 11.6 fl (7.4-10.4); Platelet Count 282 10x3/uL (150-450); RBC Distribution Width 18.2 % (11.5-14.5); White Blood Cell (WBC) Count 16.2 10x3/uL (3.5-10.5)
[2022-08-02 04:16] LABS: Anion Gap 17 mmol/L (10-20); BUN (Urea Nitrogen) 88 mg/dL (8.4-25.7); Calc. Creatinine Clearance 44 mL/min (70-130); Calcium 9.7 mg/dL (7.8-10.44); Carbon Dioxide 28 mmol/L (23-31); Chloride 100 mmol/L (98-107); Estimated GFR 37; Glucose 172 mg/dL (83-110); Potassium 3.6 mmol/L (3.5-5.1); Sodium 141 mmol/L (136-145)
[2022-08-02] MEDS: Albumin 25% 25 GM/100 ML BOT IVPB SCH ×4 (05:16→18:00)
[2022-08-02] MEDS ORDERED: Piperacillin/Tazobactam 3.375 GM in Sodium Chloride 0.9% 100 ML IVPB SCH (08:00)
[2022-08-02] MEDS ORDERED: Pantoprazole 40 MG VIAL ONE (09:10)
[2022-08-02] MEDS: Polyethylene Glycol 3350 17 GM Packet PO SCH (09:40)
[2022-08-02] MEDS: Fluticasone Propionate Nasal Spray 16 gm Bottle NASAL SCH (09:40)
[2022-08-02] MEDS: Senokot S 8.6-50 MG TAB PO SCH ×2 (09:41→20:25)
[2022-08-02] MEDS: Pantoprazole 40 MG VIAL IVP SCH ×2 (09:42→20:26)
[2022-08-02] MEDS: Carvedilol 3.125 MG TAB PO SCH ×2 (10:07→18:01)
[2022-08-02] MEDS: Piperacillin/Tazobactam 3.375 GM in Sodium Chloride 0.9% 100 ML IVPB SCH ×2 (14:29→20:25)
[2022-08-02] MEDS ORDERED: DOBUTamine 500 mg/250 ml 250 ML IVPB SCH (19:45)
[2022-08-02] MEDS ORDERED: Sodium Chloride 0.9% 100 ML ONE (20:01)
[2022-08-02] MEDS ORDERED: Piperacillin/Tazobactam 3.375 GM VIAL ONE (20:01)
[2022-08-02] MEDS: rOPINIRole HCl 0.25 MG TAB PO SCH (20:25)
[2022-08-03] MEDS: Furosemide 40 MG/4 ML VIAL SLOW IVP SCH ×2 (00:09→05:08)
[2022-08-03] MEDS: Albumin 25% 25 GM/100 ML BOT IVPB SCH ×2 (00:09→05:08)
[2022-08-03 04:19] LABS: #Basophils 0.1 10x3/uL (0.0-0.2); #Eosinphils 0.2 10x3/uL (0.0-0.5); #Monocytes 1.4 10x3/uL (0.0-1.1); #Neutrophils 12.2 10x3/uL (1.5-8.4); %Basophils 0.4 % (0.0-2.0); %Eosinophils 1.3 % (0.0-6.0); %Lymphocytes 8.1 % (18.0-47.0); %Monocytes 8.8 % (0.0-10.0); %Neutrophils 77.6 % (40.0-75.0); Hemoglobin 8.1 g/dL (13.5-17.5); Mean Corpuscular HGB CONC 31.9 g/dL (32.0-36.0); Mean Corpuscular Hemoglobin 31.2 pg (27.0-33.0); Mean Corpuscular Volume 97.7 fl (81.2-95.1); Mean Platelet Volume 11.5 fl (7.4-10.4); Platelet Count 289 10x3/uL (150-450); RBC Distribution Width 19.9 % (11.5-14.5); White Blood Cell (WBC) Count 15.7 10x3/uL (3.5-10.5)
[2022-08-03 04:32] LABS: Anion Gap 18 mmol/L (10-20); BUN (Urea Nitrogen) 94 mg/dL (8.4-25.7); Calc. Creatinine Clearance 41 mL/min (70-130); Calcium 9.8 mg/dL (7.8-10.44); Carbon Dioxide 26 mmol/L (23-31); Chloride 101 mmol/L (98-107); Estimated GFR 34; Glucose 121 mg/dL (83-110); Potassium 3.5 mmol/L (3.5-5.1); Sodium 141 mmol/L (136-145)
[2022-08-03] MEDS: Piperacillin/Tazobactam 3.375 GM in Sodium Chloride 0.9% 100 ML IVPB SCH ×3 (04:32→21:56)
[2022-08-03] MEDS ORDERED: Spironolactone 25 MG TAB PO SCH (08:00)
[2022-08-03] MEDS: Carvedilol 3.125 MG TAB PO SCH ×2 (10:25→16:55)
[2022-08-03] MEDS: Fluticasone Propionate Nasal Spray 16 gm Bottle NASAL SCH (10:25)
[2022-08-03] MEDS: Scopolamine 1.5 mg/72 hour Patch TD SCH (10:26)
[2022-08-03] MEDS: Polyethylene Glycol 3350 17 GM Packet PO SCH (10:28)
[2022-08-03] MEDS: Metolazone 5 MG TAB PO SCH (10:29)
[2022-08-03] MEDS: Acetaminophen 325 MG TAB PO PRN ×2 (10:29→21:57)
[2022-08-03] MEDS: Senokot S 8.6-50 MG TAB PO SCH ×2 (10:30→21:57)
[2022-08-03] MEDS: Pantoprazole 40 MG VIAL IVP SCH ×2 (10:42→22:06)
[2022-08-03] MEDS: Spironolactone 25 MG TAB PO SCH (11:03)
[2022-08-03] MEDS: Ondansetron PF 4 MG/2 ML Vial IVP PRN (14:44)
[2022-08-03] MEDS: DOBUTamine 500 mg/250 ml 250 ML IVPB SCH (16:52)
[2022-08-03] MEDS ORDERED: Pantoprazole 40 MG VIAL ONE ×2 (21:18→21:19)
[2022-08-03] MEDS: rOPINIRole HCl 0.25 MG TAB PO SCH (21:57)
[2022-08-03] MEDS: Melatonin 3 MG TAB PO PRN (21:57)
[2022-08-04 04:29] LABS: #Basophils 0.1 10x3/uL (0.0-0.2); #Eosinphils 0.6 10x3/uL (0.0-0.5); #Monocytes 1.5 10x3/uL (0.0-1.1); #Neutrophils 13.3 10x3/uL (1.5-8.4); %Basophils 0.3 % (0.0-2.0); %Eosinophils 3.3 % (0.0-6.0); %Monocytes 8.4 % (0.0-10.0); %Neutrophils 76.9 % (40.0-75.0); Hemoglobin 8.4 g/dL (13.5-17.5); Mean Corpuscular HGB CONC 30.8 g/dL (32.0-36.0); Mean Corpuscular Hemoglobin 30.4 pg (27.0-33.0); Mean Corpuscular Volume 98.9 fl (81.2-95.1); Mean Platelet Volume 11.5 fl (7.4-10.4); Platelet Count 344 10x3/uL (150-450); RBC Distribution Width 21.2 % (11.5-14.5); Red Blood Cell (RBC) Count 2.76 10x6/uL (4.32-5.72); White Blood Cell (WBC) Count 17.3 10x3/uL (3.5-10.5)
[2022-08-04 04:39] LABS: Anion Gap 16 mmol/L (10-20); BUN (Urea Nitrogen) 82 mg/dL (8.4-25.7); Calc. Creatinine Clearance 42 mL/min (70-130); Calcium 9.8 mg/dL (7.8-10.44); Carbon Dioxide 28 mmol/L (23-31); Chloride 100 mmol/L (98-107); Estimated GFR 33; Glucose 131 mg/dL (83-110); Potassium 3.4 mmol/L (3.5-5.1); Sodium 141 mmol/L (136-145)
[2022-08-04] MEDS: Piperacillin/Tazobactam 3.375 GM in Sodium Chloride 0.9% 100 ML IVPB SCH ×3 (05:44→22:09)
[2022-08-04] MEDS ORDERED: Potassium Chloride 20 MEQ TAB PO SCH (08:45)
[2022-08-04] MEDS ORDERED: Electrolyte Replacement Protocol 1 EACH FS SCH (08:50)
[2022-08-04] MEDS: Carvedilol 3.125 MG TAB PO SCH ×2 (09:12→15:48)
[2022-08-04] MEDS: Fluticasone Propionate Nasal Spray 16 gm Bottle NASAL SCH (09:19)
[2022-08-04] MEDS: Polyethylene Glycol 3350 17 GM Packet PO SCH (09:20)
[2022-08-04] MEDS: Pantoprazole 40 MG VIAL IVP SCH ×2 (09:21→20:21)
[2022-08-04] MEDS: Spironolactone 25 MG TAB PO SCH ×2 (09:22→20:20)
[2022-08-04] MEDS: Metolazone 5 MG TAB PO SCH (09:22)
[2022-08-04] MEDS: Senokot S 8.6-50 MG TAB PO SCH ×2 (09:23→21:18)
[2022-08-04] MEDS: DOBUTamine 500 mg/250 ml 250 ML IVPB SCH (09:41)
[2022-08-04] MEDS: Acetaminophen 325 MG TAB PO PRN ×2 (09:45→20:26)
[2022-08-04] MEDS ORDERED: Bisacodyl 10 MG SUPP PR ONE (09:46)
[2022-08-04] MEDS ORDERED: Bisacodyl 10 MG SUPP PR SCH (13:00)
[2022-08-04 14:49] LABS: Potassium 3.6 mmol/L (3.5-5.1)
[2022-08-04] MEDS ORDERED: Furosemide 40 MG/4 ML VIAL SLOW IVP SCH (17:00)
[2022-08-04] MEDS: Furosemide 40 MG/4 ML VIAL SLOW IVP SCH (20:21)
[2022-08-04] MEDS: Doxycycline 100 MG in Sodium Chloride 0.9% 100 ML IVPB SCH (20:21)
[2022-08-04] MEDS: rOPINIRole HCl 0.25 MG TAB PO SCH (21:09)
[2022-08-04] MEDS: Melatonin 3 MG TAB PO PRN (21:09)
[2022-08-04] MEDS: Hydrocortisone Sod Succ/PF 100 mg/2 ml Vial IVP SCH (22:10)
[2022-08-05 03:54] LABS: #Basophils 0.1 10x3/uL (0.0-0.2); #Eosinphils 0.2 10x3/uL (0.0-0.5); #Neutrophils 15.2 10x3/uL (1.5-8.4); %Basophils 0.3 % (0.0-2.0); %Eosinophils 0.9 % (0.0-6.0); %Lymphocytes 4.2 % (18.0-47.0); %Monocytes 5.9 % (0.0-10.0); Hemoglobin 8.8 g/dL (13.5-17.5); Mean Corpuscular HGB CONC 31.2 g/dL (32.0-36.0); Mean Corpuscular Hemoglobin 30.9 pg (27.0-33.0); Mean Corpuscular Volume 98.9 fl (81.2-95.1); Mean Platelet Volume 11.3 fl (7.4-10.4); Platelet Count 347 10x3/uL (150-450); RBC Distribution Width 22.1 % (11.5-14.5); Red Blood Cell (RBC) Count 2.85 10x6/uL (4.32-5.72); White Blood Cell (WBC) Count 17.4 10x3/uL (3.5-10.5)
[2022-08-05 04:00] LABS: ALT (SGPT) 52 U/L (8-55); AST (SGOT) 33 U/L (5-34); Albumin 3.8 g/dL (3.4-4.8); Alkaline Phosphatase 85 U/L (40-110); Anion Gap 13 mmol/L (10-20); BUN (Urea Nitrogen) 62 mg/dL (8.4-25.7); Bilirubin, Total 2.5 mg/dL (0.2-1.2); Calc. Creatinine Clearance 53 mL/min (70-130); Calcium 9.7 mg/dL (7.8-10.44); Carbon Dioxide 32 mmol/L (23-31); Chloride 99 mmol/L (98-107); Estimated GFR 44; Globulin 1.9 g/dL (2.4-3.5); Glucose 127 mg/dL (83-110); Magnesium 2.6 mg/dL (1.6-2.6); Phosphorus 3.6 mg/dL (2.3-4.7); Potassium 3.4 mmol/L (3.5-5.1); Protein, Total 5.7 g/dL (5.8-8.1); Sodium 141 mmol/L (136-145)
[2022-08-05] MEDS: Piperacillin/Tazobactam 3.375 GM in Sodium Chloride 0.9% 100 ML IVPB SCH ×3 (04:27→21:44)
[2022-08-05 04:29] LABS: Anisocytosis SLIGHT = 6-15 cells (100X) (0-5/hpf)
[2022-08-05 04:30] LABS: Hypochromia SLIGHT = 6-15 cells (100X) (0-5/hpf); Macrocytosis SLIGHT = 6-15 cells (100X) (0-5/hpf); Platelet Morphology Comment Appears Adequate; Target Cells SLIGHT = 2-5 cells (100X) (0-1/hpf)
[2022-08-05] MEDS ORDERED: Potassium Bicarbonate/Cit Ac 20 MEQ TAB PO SCH (04:45)
[2022-08-05] MEDS: Hydrocortisone Sod Succ/PF 100 mg/2 ml Vial IVP SCH ×3 (05:33→21:44)
[2022-08-05] MEDS ORDERED: Potassium Chloride 20 MEQ TAB PO SCH (07:15)
[2022-08-05] MEDS: DOBUTamine 500 mg/250 ml 250 ML IVPB SCH ×2 (07:33→09:25)
[2022-08-05] MEDS ORDERED: AcetaZOLAMIDE ER 500 MG CAP PO SCH (09:00)
[2022-08-05] MEDS: Doxycycline 100 MG in Sodium Chloride 0.9% 100 ML IVPB SCH ×2 (09:07→20:22)
[2022-08-05] MEDS: Spironolactone 25 MG TAB PO SCH ×2 (09:07→20:29)
[2022-08-05] MEDS: AcetaZOLAMIDE 250 MG TAB PO SCH ×2 (09:08→20:31)
[2022-08-05] MEDS: Acetaminophen 325 MG TAB PO PRN ×3 (09:09→20:31)
[2022-08-05] MEDS: Carvedilol 3.125 MG TAB PO SCH ×2 (09:11→17:51)
[2022-08-05] MEDS: Senokot S 8.6-50 MG TAB PO SCH ×2 (09:11→20:33)
[2022-08-05] MEDS: Polyethylene Glycol 3350 17 GM Packet PO SCH (09:12)
[2022-08-05] MEDS: Metolazone 5 MG TAB PO SCH (09:12)
[2022-08-05] MEDS: Pantoprazole 40 MG VIAL IVP SCH ×2 (09:14→20:29)
[2022-08-05] MEDS: Furosemide 40 MG/4 ML VIAL SLOW IVP SCH ×2 (09:15→20:31)
[2022-08-05] MEDS: Fluticasone Propionate Nasal Spray 16 gm Bottle NASAL SCH (09:15)
[2022-08-05] MEDS ORDERED: Albumin 25% 25 GM/100 ML BOT IVPB SCH (10:15)
[2022-08-05] MEDS: Melatonin 3 MG TAB PO PRN (20:30)
[2022-08-05] MEDS: rOPINIRole HCl 0.25 MG TAB PO SCH (20:30)
[2022-08-06 04:30] LABS: #Monocytes 0.9 10x3/uL (0.0-1.1); #Neutrophils 13.6 10x3/uL (1.5-8.4); %Basophils 0.1 % (0.0-2.0); %Eosinophils 0.1 % (0.0-6.0); %Lymphocytes 4.2 % (18.0-47.0); %Monocytes 6.1 % (0.0-10.0); %Neutrophils 88.2 % (40.0-75.0); Hemoglobin 8.6 g/dL (13.5-17.5); Mean Corpuscular HGB CONC 29.8 g/dL (32.0-36.0); Mean Corpuscular Hemoglobin 29.9 pg (27.0-33.0); Mean Corpuscular Volume 100.3 fl (81.2-95.1); Platelet Count 354 10x3/uL (150-450); RBC Distribution Width 22.5 % (11.5-14.5); Red Blood Cell (RBC) Count 2.88 10x6/uL (4.32-5.72); White Blood Cell (WBC) Count 15.4 10x3/uL (3.5-10.5)
[2022-08-06 04:44] LABS: Phosphorus 3.8 mg/dL (2.3-4.7)
[2022-08-06] MEDS: Piperacillin/Tazobactam 3.375 GM in Sodium Chloride 0.9% 100 ML IVPB SCH ×2 (04:44→13:00)
[2022-08-06 04:46] LABS: ALT (SGPT) 41 U/L (8-55); AST (SGOT) 24 U/L (5-34); Albumin 3.9 g/dL (3.4-4.8); Alkaline Phosphatase 69 U/L (40-110); Anion Gap 14 mmol/L (10-20); BUN (Urea Nitrogen) 59 mg/dL (8.4-25.7); Bilirubin, Total 2.2 mg/dL (0.2-1.2); Calc. Creatinine Clearance 47 mL/min (70-130); Calcium 9.8 mg/dL (7.8-10.44); Carbon Dioxide 32 mmol/L (23-31); Chloride 99 mmol/L (98-107); Estimated GFR 38; Glucose 134 mg/dL (83-110); Magnesium 2.4 mg/dL (1.6-2.6); Potassium 3.4 mmol/L (3.5-5.1); Protein, Total 5.9 g/dL (5.8-8.1); Sodium 142 mmol/L (136-145)
[2022-08-06] MEDS: Hydrocortisone Sod Succ/PF 100 mg/2 ml Vial IVP SCH ×3 (05:42→21:14)
[2022-08-06] MEDS ORDERED: Potassium Chloride 20 MEQ TAB PO SCH (06:00)
[2022-08-06] MEDS: DOBUTamine 500 mg/250 ml 250 ML IVPB SCH (08:51)
[2022-08-06] MEDS: Doxycycline 100 MG in Sodium Chloride 0.9% 100 ML IVPB SCH ×2 (08:59→21:07)
[2022-08-06] MEDS: Pantoprazole 40 MG VIAL IVP SCH ×2 (08:59→21:14)
[2022-08-06] MEDS: Spironolactone 25 MG TAB PO SCH ×2 (09:00→21:13)
[2022-08-06] MEDS: Furosemide 40 MG/4 ML VIAL SLOW IVP SCH ×2 (09:00→21:14)
[2022-08-06] MEDS: Metolazone 5 MG TAB PO SCH (09:00)
[2022-08-06] MEDS: Potassium Chloride 20 MEQ TAB PO SCH ×2 (09:00→21:14)
[2022-08-06] MEDS: AcetaZOLAMIDE 250 MG TAB PO SCH ×2 (09:01→21:13)
[2022-08-06] MEDS: Acetaminophen 325 MG TAB PO PRN ×2 (09:01→12:59)
[2022-08-06] MEDS: Carvedilol 3.125 MG TAB PO SCH ×2 (09:02→17:22)
[2022-08-06] MEDS: Polyethylene Glycol 3350 17 GM Packet PO SCH (09:03)
[2022-08-06] MEDS: Fluticasone Propionate Nasal Spray 16 gm Bottle NASAL SCH (09:03)
[2022-08-06] MEDS: Senokot S 8.6-50 MG TAB PO SCH ×2 (09:03→21:13)
[2022-08-06] MEDS: Scopolamine 1.5 mg/72 hour Patch TD SCH (12:59)
[2022-08-06] MEDS: rOPINIRole HCl 0.25 MG TAB PO SCH (21:13)
[2022-08-07] MEDS: Piperacillin/Tazobactam 3.375 GM in Sodium Chloride 0.9% 100 ML IVPB SCH ×3 (00:36→18:50)
[2022-08-07] MEDS: DOBUTamine 500 mg/250 ml 250 ML IVPB SCH ×2 (03:28→21:19)
[2022-08-07] MEDS: Hydrocortisone Sod Succ/PF 100 mg/2 ml Vial IVP SCH ×2 (05:30→16:54)
[2022-08-07 06:05] LABS: Hemoglobin 9.4 g/dL (13.5-17.5); Mean Corpuscular HGB CONC 29.6 g/dL (32.0-36.0); Mean Corpuscular Hemoglobin 30.3 pg (27.0-33.0); Mean Corpuscular Volume 102.6 fl (81.2-95.1); Mean Platelet Volume 11.1 fl (7.4-10.4); Platelet Count 451 10x3/uL (150-450); RBC Distribution Width 22.4 % (11.5-14.5)
[2022-08-07 06:22] LABS: Anion Gap 14 mmol/L (10-20); BUN (Urea Nitrogen) 59 mg/dL (8.4-25.7); Calc. Creatinine Clearance 47 mL/min (70-130); Calcium 9.8 mg/dL (7.8-10.44); Carbon Dioxide 32 mmol/L (23-31); Chloride 100 mmol/L (98-107); Estimated GFR 38; Glucose 125 mg/dL (83-110); Potassium 3.4 mmol/L (3.5-5.1); Sodium 143 mmol/L (136-145)
[2022-08-07 06:26] LABS: MDiff Complete? YES
[2022-08-07 06:29] LABS: Lymphocytes 4 % (21-51); Monocytes 6 % (0-10); Neutrophil 90 % (42-75)
[2022-08-07 06:31] LABS: Anisocytosis SLIGHT = 6-15 cells (100X) (0-5/hpf)
[2022-08-07 06:32] LABS: Elliptocytes SLIGHT = 2-5 cells (100X) (0-1/hpf); Large Platelets SLIGHT; Macrocytosis SLIGHT = 6-15 cells (100X) (0-5/hpf); Platelet Morphology Comment Appears Adequate; Schistocytes SLIGHT = 2-5 cells (100X) (0-1/hpf)
[2022-08-07] MEDS ORDERED: Potassium Chloride 20 MEQ TAB PO SCH ×2 (08:00)
[2022-08-07] MEDS: Fluticasone Propionate Nasal Spray 16 gm Bottle NASAL SCH (09:53)
[2022-08-07] MEDS: Spironolactone 25 MG TAB PO SCH ×2 (09:53→20:57)
[2022-08-07] MEDS: AcetaZOLAMIDE 250 MG TAB PO SCH ×2 (09:55→20:57)
[2022-08-07] MEDS: Senokot S 8.6-50 MG TAB PO SCH ×2 (09:56→20:58)
[2022-08-07] MEDS: Polyethylene Glycol 3350 17 GM Packet PO SCH (09:56)
[2022-08-07] MEDS: Furosemide 40 MG/4 ML VIAL SLOW IVP SCH ×2 (09:57→20:58)
[2022-08-07] MEDS: Carvedilol 3.125 MG TAB PO SCH ×2 (09:57→17:00)
[2022-08-07] MEDS: Metolazone 5 MG TAB PO SCH (09:58)
[2022-08-07] MEDS: Pantoprazole 40 MG VIAL IVP SCH ×2 (09:58→20:58)
[2022-08-07] MEDS: Doxycycline 100 MG in Sodium Chloride 0.9% 100 ML IVPB SCH ×2 (09:58→20:58)
[2022-08-07] MEDS ORDERED: EPOETIN ALFA-EPBX (ESRD) 4,000 UNIT/ML VIAL SC SCH (10:00)
[2022-08-07] MEDS ORDERED: EPOETIN ALFA-EPBX (ESRD) 2,000 UNIT/ML VIAL SC SCH (10:00)
[2022-08-07] MEDS: EPOETIN ALFA-EPBX (ESRD) 10,000 UNIT/ML VIAL SC SCH (11:41)
[2022-08-07] MEDS: Potassium Chloride 20 MEQ TAB PO SCH ×2 (12:38→17:00)
[2022-08-07] MEDS: Melatonin 3 MG TAB PO PRN (20:57)
[2022-08-07] MEDS: Acetaminophen 325 MG TAB PO PRN (20:57)
[2022-08-07] MEDS: Hydrocortisone 10 mg Tablet PO SCH (20:58)
[2022-08-07] MEDS: rOPINIRole HCl 0.25 MG TAB PO SCH (20:58)
[2022-08-08] MEDS: Piperacillin/Tazobactam 3.375 GM in Sodium Chloride 0.9% 100 ML IVPB SCH ×3 (01:24→18:44)
[2022-08-08 06:02] LABS: Hemoglobin 9.7 g/dL (13.5-17.5); Mean Corpuscular Hemoglobin 29.9 pg (27.0-33.0); Mean Corpuscular Volume 103.1 fl (81.2-95.1); Mean Platelet Volume 11.5 fl (7.4-10.4); Platelet Count 496 10x3/uL (150-450); RBC Distribution Width 22.1 % (11.5-14.5); Red Blood Cell (RBC) Count 3.24 10x6/uL (4.32-5.72); White Blood Cell (WBC) Count 21.5 10x3/uL (3.5-10.5)
[2022-08-08 06:13] LABS: Albumin 3.7 g/dL (3.4-4.8); Anion Gap 15 mmol/L (10-20); BUN (Urea Nitrogen) 60 mg/dL (8.4-25.7); BUN/Creatinine Ratio 32.09; Calc. Creatinine Clearance 44 mL/min (70-130); Calcium 9.9 mg/dL (7.8-10.44); Carbon Dioxide 32 mmol/L (23-31); Chloride 102 mmol/L (98-107); Estimated GFR 35; Glucose 104 mg/dL (83-110); Magnesium 2.3 mg/dL (1.6-2.6); Phosphorus 3.9 mg/dL (2.3-4.7); Potassium 3.9 mmol/L (3.5-5.1); Sodium 145 mmol/L (136-145)
[2022-08-08 06:39] LABS: MDiff Complete? YES
[2022-08-08 06:41] LABS: Lymphocytes 7 % (21-51); Monocytes 8 % (0-10); Neutrophil 85 % (42-75)
[2022-08-08 06:43] LABS: Anisocytosis SLIGHT = 6-15 cells (100X) (0-5/hpf); Hypochromia SLIGHT = 6-15 cells (100X) (0-5/hpf); Macrocytosis SLIGHT = 6-15 cells (100X) (0-5/hpf); Microcytosis SLIGHT = 6-15 cells (100X) (0-5/hpf); Schistocytes SLIGHT = 2-5 cells (100X) (0-1/hpf)
[2022-08-08 06:44] LABS: Elliptocytes SLIGHT = 2-5 cells (100X) (0-1/hpf); Platelet Morphology Comment Appears Increased
[2022-08-08] MEDS: Pantoprazole 40 MG VIAL IVP SCH ×2 (09:03→22:26)
[2022-08-08] MEDS: Furosemide 40 MG/4 ML VIAL SLOW IVP SCH ×2 (09:06→22:08)
[2022-08-08] MEDS: Senokot S 8.6-50 MG TAB PO SCH ×2 (09:12→22:07)
[2022-08-08] MEDS: Carvedilol 3.125 MG TAB PO SCH (09:12)
[2022-08-08] MEDS: Spironolactone 25 MG TAB PO SCH ×2 (09:12→22:07)
[2022-08-08] MEDS: Metolazone 5 MG TAB PO SCH (09:12)
[2022-08-08] MEDS: Doxycycline 100 MG in Sodium Chloride 0.9% 100 ML IVPB SCH ×2 (09:17→22:06)
[2022-08-08] MEDS: Polyethylene Glycol 3350 17 GM Packet PO SCH (09:20)
[2022-08-08] MEDS: AcetaZOLAMIDE 250 MG TAB PO SCH ×2 (09:23→22:23)
[2022-08-08] MEDS: Fluticasone Propionate Nasal Spray 16 gm Bottle NASAL SCH (09:27)
[2022-08-08] MEDS: Hydrocortisone 10 mg Tablet PO SCH (09:33)
[2022-08-08 17:02] LABS: Bilirubin Neg (Negative); Blood, Urine 50 (Negative); Clarity Clear (Clear); Glucose, Urine (Dipstick) Normal (Negative); Ketone, Urine Negative (Negative); Leukocyte 25 (Negative); Nitrite Negative (Negative); Protein, Urine (Dipstick) Negative (Neg-Trace)
[2022-08-08 17:11] LABS: Bacteria/HPF 1+ HPF (None Seen); CAUTI Indications for Culture Alt mental st,lethar; RBC/HPF 21-50 HPF (0-3); Squamous Epithelial 0-3 HPF (0-3)
[2022-08-08 17:12] LABS: Mucous/LPF Rare LPF (<2+)
[2022-08-08 17:14] LABS: Urine Culture Reflex No No
[2022-08-08] MEDS: DOBUTamine 500 mg/250 ml 250 ML IVPB SCH (17:42)
[2022-08-08] MEDS: guaiFENesin ER 600 MG TAB PO SCH (22:08)
[2022-08-08] MEDS: rOPINIRole HCl 0.25 MG TAB PO SCH (22:23)
[2022-08-08] MEDS: Melatonin 3 MG TAB PO PRN (22:24)
[2022-08-08] MEDS: Acetaminophen 325 MG TAB PO PRN (22:24)
[2022-08-09] MEDS: Piperacillin/Tazobactam 3.375 GM in Sodium Chloride 0.9% 100 ML IVPB SCH ×3 (00:51→16:42)
[2022-08-09 05:34] LABS: Hemoglobin 10.5 g/dL (13.5-17.5); Mean Corpuscular HGB CONC 29.3 g/dL (32.0-36.0); Mean Corpuscular Hemoglobin 30.1 pg (27.0-33.0); Mean Corpuscular Volume 102.6 fl (81.2-95.1); Mean Platelet Volume 10.7 fl (7.4-10.4); Platelet Count 453 10x3/uL (150-450); RBC Distribution Width 21.8 % (11.5-14.5); Red Blood Cell (RBC) Count 3.49 10x6/uL (4.32-5.72); White Blood Cell (WBC) Count 21.2 10x3/uL (3.5-10.5)
[2022-08-09 05:35] LABS: ALT (SGPT) 42 U/L (8-55); AST (SGOT) 38 U/L (5-34); Alkaline Phosphatase 74 U/L (40-110); Anion Gap 17 mmol/L (10-20); BUN (Urea Nitrogen) 53 mg/dL (8.4-25.7); Bilirubin, Total 1.8 mg/dL (0.2-1.2); Calc. Creatinine Clearance 44 mL/min (70-130); Calcium 10.2 mg/dL (7.8-10.44); Carbon Dioxide 28 mmol/L (23-31); Chloride 101 mmol/L (98-107); Estimated GFR 35; Globulin 2.3 g/dL (2.4-3.5); Glucose 127 mg/dL (83-110); Magnesium 2.2 mg/dL (1.6-2.6); Potassium 3.3 mmol/L (3.5-5.1); Protein, Total 6.3 g/dL (5.8-8.1); Sodium 143 mmol/L (136-145)
[2022-08-09 05:55] LABS: MDiff Complete? YES
[2022-08-09] MEDS ORDERED: Potassium Chloride 20 MEQ TAB PO SCH ×2 (06:00→17:00)
[2022-08-09 06:14] LABS: Eosinophils 1 % (0-10); Lymphocytes 5 % (21-51); Monocytes 8 % (0-10); Neutrophil 86 % (42-75)
[2022-08-09 06:16] LABS: Anisocytosis SLIGHT = 6-15 cells (100X) (0-5/hpf); Macrocytosis SLIGHT = 6-15 cells (100X) (0-5/hpf); Microcytosis SLIGHT = 6-15 cells (100X) (0-5/hpf); Platelet Morphology Comment Appears Increased
[2022-08-09] MEDS: guaiFENesin ER 600 MG TAB PO SCH ×2 (09:37→20:22)
[2022-08-09] MEDS: Hydrocortisone 10 mg Tablet PO SCH (09:37)
[2022-08-09] MEDS: Spironolactone 25 MG TAB PO SCH ×2 (09:38→20:22)
[2022-08-09] MEDS: AcetaZOLAMIDE 250 MG TAB PO SCH ×2 (09:39→20:25)
[2022-08-09] MEDS: Polyethylene Glycol 3350 17 GM Packet PO SCH (09:49)
[2022-08-09] MEDS: Fluticasone Propionate Nasal Spray 16 gm Bottle NASAL SCH (09:50)
[2022-08-09] MEDS: Pantoprazole 40 MG VIAL IVP SCH ×2 (09:54→20:21)
[2022-08-09] MEDS: Furosemide 40 MG/4 ML VIAL SLOW IVP SCH ×2 (09:54→20:21)
[2022-08-09] MEDS: Metolazone 5 MG TAB PO SCH (10:09)
[2022-08-09] MEDS ORDERED: DOBUTamine 500 mg/250 ml 250 ML IVPB SCH (11:15)
[2022-08-09] MEDS: DOBUTamine 500 mg/250 ml 250 ML IVPB SCH (12:40)
[2022-08-09] MEDS: Senokot S 8.6-50 MG TAB PO SCH ×2 (12:45→20:26)
[2022-08-09] MEDS: Scopolamine 1.5 mg/72 hour Patch TD SCH (13:07)
[2022-08-09 16:34] VITALS: TEMP 97.3
[2022-08-09 17:57] VITALS: BP 106/58
[2022-08-09] MEDS: rOPINIRole HCl 0.25 MG TAB PO SCH (20:25)
[2022-08-09] MEDS: DOBUTamine 500 mg/250 ml 500 MG in Premix Bag 1 BAG IVPB SCH (21:04)
[2022-08-10] MEDS: Piperacillin/Tazobactam 3.375 GM in Sodium Chloride 0.9% 100 ML IVPB SCH ×3 (00:23→17:56)
[2022-08-10 04:06] LABS: Mean Corpuscular HGB CONC 29.5 g/dL (32.0-36.0)
[2022-08-10 04:07] LABS: #Eosinphils 0.1 10x3/uL (0.0-0.5); #Monocytes 1.4 10x3/uL (0.0-1.1); #Neutrophils 16.7 10x3/uL (1.5-8.4); %Basophils 0.1 % (0.0-2.0); %Eosinophils 0.4 % (0.0-6.0); %Lymphocytes 3.8 % (18.0-47.0); %Monocytes 7.1 % (0.0-10.0); %Neutrophils 88.1 % (40.0-75.0); Hemoglobin 9.7 g/dL (13.5-17.5); Mean Corpuscular Hemoglobin 29.7 pg (27.0-33.0); Mean Corpuscular Volume 100.6 fl (81.2-95.1); Mean Platelet Volume 11.4 fl (7.4-10.4); Platelet Count 410 10x3/uL (150-450); RBC Distribution Width 21.3 % (11.5-14.5); Red Blood Cell (RBC) Count 3.27 10x6/uL (4.32-5.72); White Blood Cell (WBC) Count 18.9 10x3/uL (3.5-10.5)
[2022-08-10 04:15] LABS: ALT (SGPT) 38 U/L (8-55); AST (SGOT) 35 U/L (5-34); Albumin 3.9 g/dL (3.4-4.8); Alkaline Phosphatase 70 U/L (40-110); Anion Gap 17 mmol/L (10-20); BUN (Urea Nitrogen) 50 mg/dL (8.4-25.7); Calc. Creatinine Clearance 42 mL/min (70-130); Calcium 10.3 mg/dL (7.8-10.44); Carbon Dioxide 28 mmol/L (23-31); Chloride 101 mmol/L (98-107); Estimated GFR 35; Globulin 2.3 g/dL (2.4-3.5); Glucose 105 mg/dL (83-110); Potassium 3.5 mmol/L (3.5-5.1); Protein, Total 6.2 g/dL (5.8-8.1); Sodium 142 mmol/L (136-145)
[2022-08-10] MEDS ORDERED: Potassium Chloride 20 MEQ TAB PO SCH (06:00)
[2022-08-10] MEDS: DOBUTamine 500 mg/250 ml 500 MG in Premix Bag 1 BAG IVPB SCH (08:13)
[2022-08-10] MEDS: Senokot S 8.6-50 MG TAB PO SCH ×2 (08:25→20:15)
[2022-08-10] MEDS: Polyethylene Glycol 3350 17 GM Packet PO SCH (08:25)
[2022-08-10] MEDS ORDERED: Sodium Chloride 0.9% 100 ML ONE (08:59)
[2022-08-10] MEDS ORDERED: Piperacillin/Tazobactam 3.375 GM VIAL ONE (08:59)
[2022-08-10] MEDS: Metolazone 5 MG TAB PO SCH (09:00)
[2022-08-10] MEDS: Furosemide 40 MG/4 ML VIAL SLOW IVP SCH ×2 (09:01→20:13)
[2022-08-10] MEDS: Spironolactone 25 MG TAB PO SCH ×2 (09:01→20:15)
[2022-08-10] MEDS: Pantoprazole 40 MG VIAL IVP SCH ×2 (09:09→20:15)
[2022-08-10] MEDS: guaiFENesin ER 600 MG TAB PO SCH ×2 (09:10→20:13)
[2022-08-10] MEDS: Hydrocortisone 10 mg Tablet PO SCH (09:20)
[2022-08-10] MEDS: AcetaZOLAMIDE 250 MG TAB PO SCH ×2 (09:21→20:13)
[2022-08-10] MEDS: Fluticasone Propionate Nasal Spray 16 gm Bottle NASAL SCH (09:29)
[2022-08-10 11:34] LABS: Base Excess (BEa) 3.1 mEq/L (-2.0 to +3.0); CO2 Tension 58.3 mmHg (35.0-45.0); Calcium, Ionized (arterial) 1.31 mmol/L (1.12-1.30); Carboxyhemoglobin (COHb) 1.1 gm% (0.0-3.0); Hemoglobin (Hb) 10.3 g/dL (14.0-18.0); O2 Tension (PaO2), arterial 185.5 mmHg (> 60.0); Potassium - ABG Lab 3.5 mmol/L (3.70-5.30); Puncture Site LRA; pH, Arterial 7.33 (7.35-7.45)
[2022-08-10 11:38] LABS: ALV-art Gradient 169.425 mmHg (0-20)
[2022-08-10] MEDS: Lorazepam 2 MG/ML VIAL SLOW IVP PRN ×3 (14:51→21:23)
[2022-08-10] MEDS ORDERED: Morphine 4 MG/ML VIAL SLOW IVP PRN (15:38)
[2022-08-10] MEDS ORDERED: Fentanyl 100 MCG/2 ML VIAL SLOW IVP SCH (20:00)
[2022-08-10] MEDS: rOPINIRole HCl 0.25 MG TAB PO SCH (20:15)
[2022-08-10] MEDS: Fentanyl 100 MCG/2 ML VIAL SLOW IVP PRN ×2 (20:51→21:24)
[2022-08-10] MEDS ORDERED: fentaNYL 50 mcg/hour Patch TD SCH (22:00)
[2022-08-11] MEDS: Lorazepam 2 MG/ML VIAL SLOW IVP PRN (00:44)
[2022-08-11] MEDS: Piperacillin/Tazobactam 3.375 GM in Sodium Chloride 0.9% 100 ML IVPB SCH (00:48)
[2022-08-11 04:57] VITALS: BMI 30.6
[2022-08-11] MEDS: Fentanyl 100 MCG/2 ML VIAL SLOW IVP PRN (11:37)
== END 2022-08-11 16:44 | disposition expired | DRG 291 ==
LOC: CSHERS 10:02 → CSHERHOLD 15:19 → CSHTELE 23:22 → CSHIMCU 08-09 12:44
PROVIDERS: ADMIT Family Medicine; ATTEND Internal Medicine
PROC: 8E0ZXY6 Isolation (ICD-10-PCS; 2022-07-23)
PROC: 30233J1 Transfusion of Nonautologous Serum Albumin into Peripheral Vein, Percutaneous Approach (ICD-10-PCS; 2022-07-26)
PROC: 30233N1 Transfusion of Nonautologous Red Blood Cells into Peripheral Vein, Percutaneous Approach (ICD-10-PCS; principal; 2022-07-29)
PROC: 0W3P8ZZ Control Bleeding in Gastrointestinal Tract, Via Natural or Artificial Opening Endoscopic (ICD-10-PCS; 2022-07-29)
PROC: 4A133R1 Monitoring of Arterial Saturation, Peripheral, Percutaneous Approach (ICD-10-PCS; 2022-08-10)
PROC: 5A09357 Assistance with Respiratory Ventilation, Less than 24 Consecutive Hours, Continuous Positive Airway Pressure (ICD-10-PCS; 2022-08-10)
DX: I13.0 Hypertensive heart and chronic kidney disease with heart failure and stage 1 through stage 4 chronic kidney disease, or unspecified chronic kidney disease (principal); I50.43 Acute on chronic combined systolic (congestive) and diastolic (congestive) heart failure; K26.4 Chronic or unspecified duodenal ulcer with hemorrhage; U07.1 COVID-19; J96.01 Acute respiratory failure with hypoxia; D62 Acute posthemorrhagic anemia; N17.9 Acute kidney failure, unspecified; R18.8 Other ascites; K92.1 Melena; T83.89XA Other specified complication of genitourinary prosthetic devices, implants and grafts, initial encounter; E87.3 Alkalosis; N30.41 Irradiation cystitis with hematuria; I25.10 Atherosclerotic heart disease of native coronary artery without angina pectoris; Z51.5 Encounter for palliative care; Z66 Do not resuscitate; N18.9 Chronic kidney disease, unspecified; I49.5 Sick sinus syndrome; I48.0 Paroxysmal atrial fibrillation; R62.7 Adult failure to thrive; E87.6 Hypokalemia; I27.20 Pulmonary hypertension, unspecified; D63.1 Anemia in chronic kidney disease; K59.00 Constipation, unspecified; I95.9 Hypotension, unspecified; R31.0 Gross hematuria; Z79.01 Long term (current) use of anticoagulants; Z98.890 Other specified postprocedural states; Z95.0 Presence of cardiac pacemaker; Z95.1 Presence of aortocoronary bypass graft; Z85.46 Personal history of malignant neoplasm of prostate; Z92.3 Personal history of irradiation; Z88.5 Allergy status to narcotic agent; Z79.899 Other long term (current) drug therapy; Z79.51 Long term (current) use of inhaled steroids; Z95.5 Presence of coronary angioplasty implant and graft; Z90.49 Acquired absence of other specified parts of digestive tract; Z88.2 Allergy status to sulfonamides
CPT/HCPCS: 36415; 36430; 36600; 71045; 74018; 74177; 76705; 80048; 80053; 80069; 81001; 82040; 82248; 82533; 82570; 82728; 82805; 83540; 83550; 83690; 83735; 83880; 84100; 84132; 84145; 84156; 84300; 84443; 84484; 84540; 85025; 85610; 85730; 86850; 86900; 86901; 87040; 93005; 93010; 94640; 94660; 94667; 94668; 94760; 94762; 96374; C9113; G0277; J1250; J1720; J1940; J2060; J2405; J2543; J2704; J2916; J3010; J3490; J7050; J7611; P9016; P9047; Q5105; Q9967; U0002